=== PATIENT | female | born 1960 | race Hispanic/Latino ===

== ENCOUNTER 2022-11-04 15:34 | Observation (INO) | payer SELFPAY ==
[2022-11-04] MEDS ORDERED: NA CHLORIDE 0.9% 1,000 ML ONE (17:09)
[2022-11-04] MEDS ORDERED: NA CHLORIDE 0.9% 100 ML ONE (17:09)
[2022-11-04] MEDS ORDERED: SMZ./TMP. 800/160 MG TABLET ONE (17:09)
[2022-11-04] MEDS ORDERED: CEFAZOLIN SODIUM 1 GM/VIAL ONE (17:09)
--- NOTE | 2022-11-04 18:08 | RAD REPORT ---
EXAM DESCRIPTION: Yashira Single View11/04/2022 5:22 pm CLINICAL HISTORY: COUGH COMPARISON: No comparisonsNo comparisons TECHNIQUE: Portable AP view of the chest. FINDINGS: The lungs show no focal consolidation. Diffuse interstitial prominence. No pneumothorax o r effusion. The cardiomediastinal contours are unremarkable. IMPRESSION: Diffuse interstitial prominence with no focal consolidation. Fine may relate to mild joão tral congestion or edema.
[2022-11-04 18:10] LABS: Absolute Lymphocytes (CBC) 2.3 K/uL (0.7-4.9); Hematocrit 37.6 % (36.0-45.0); Lymphocytes % 39.7 % (15.3-44.8); MCV 96.9 fL (80-100); MPV 11.9 fL (7.6-11.3); RBC Red Blood Cell Count 3.89 M/uL (3.86-4.86)
--- NOTE | 2022-11-04 18:13 | RAD REPORT ---
EXAM DESCRIPTION: RAD - Tib Fib Right - 11/04/2022 5:22 pm CLINICAL HISTORY: Pain;Swelling COMPARISON: No comparisons TECHNIQUE: Right tibia and fibula, 2 views. FINDINGS: No fracture is identified. There is no dislocation or periosteal reaction noted. No acute or suspicious bony finding. Soft tissue defect along the lateral distal lower leg. Pronounced subcutaneous soft tissue swelling t hroughout the lower leg. IMPRESSION: Soft tissue swelling with wound along the lateral distal lower leg. No acute osseous ab normality
[2022-11-04 18:16] LABS: Protime INR 1.25
[2022-11-04 18:36] LABS: Albumin 2.6 g/dL (3.4-5.0); Bilirubin Direct 0.2 mg/dL (0-0.2); Bilirubin Indirect, Calculated 0.3 mg/dL (0.2-0.8); Bilirubin Total 0.5 mg/dL (0.2-1.0); Magnesium 1.9 mg/dL (1.6-2.4); Potassium 3.7 mEq/L (3.5-5.1); Protein, Total 7.1 g/dL (6.4-8.2); Troponin High Sensitivity 12.6 pg/mL (<58.9)
--- NOTE | 2022-11-04 18:38 | RAD REPORT ---
EXAM DESCRIPTION: US - Extrem Venous W Compress Miller - 11/04/2022 5:55 pm CLINICAL HISTORY: Pain, swelling COMPARISON: None. TECHNIQUE: Real-time sonographic evaluation of the bilateral lower extremity deep venous systems was performed. FINDINGS: Normal compressibility, flow augmentation, phasic flow and spontaneous flow is identified in both the left and right lower extremity deep venous systems. No intraluminal filling defects seen. IMPRESSION: No evidence of DVT in either lower extremity.
--- NOTE | 2022-11-04 18:52 | EDPHYS ---
Physician Documentation [facility] Name: Jasmin Leger Age: 62 yrs Sex: Female : 1960 Arrival Date: 11/04/2022 Time: 15:34 Bed 15 Private MD: ED Physician Jeferson Tirado HPI: 11/04 16:39 This 62 yrs old Female presents to ER via Ambulatory with complaints of Leg jermaine Swelling, Wound Check. 16:39 Patient presents to ED for recheck of: cellulitis. The affected area is on the lateral jermaine aspect of right calf and right ankle. Historical: - Allergies: 15:58 No Known Allergies; aa5 - PMHx: 15:58 Hypertensive disorder; aa5 - PSHx: 15:58 None; aa5 - Immunization history:: Adult Immunizations unknown. - Social history:: Smoking status: Patient denies any tobacco usage or history of. Patient uses. ROS: 16:39 Constitutional: Negative for fever, chills, and weight loss, Eyes: Negative for injury, jermaine pain, redness, and discharge, ENT: Negative for injury, pain, and discharge, Neck: Negative for injury, pain, and swelling, Cardiovascular: Negative for chest pain, palpitations, and edema, Respiratory: Negative for shortness of breath, cough, wheezing, and pleuritic chest pain, Abdomen/GI: Negative for abdominal pain, nausea, vomiting, diarrhea, and constipation, Back: Negative for injury and pain, : Negative for injury, bleeding, discharge, and swelling, Skin: Negative for injury, rash, and discoloration, Neuro: Negative for headache, weakness, numbness, tingling, and seizure, Psych: Negative for depression, anxiety, suicide ideation, homicidal ideation, and hallucinations, Allergy/Immunology: Negative for hives, rash, and allergies, Endocrine: Negative for neck swelling, polydipsia, polyuria, polyphagia, and marked weight changes, Hematologic/Lymphatic: Negative for swollen nodes, abnormal bleeding, and unusual bruising. 16:39 MS/extremity: Positive for pain, swelling, tenderness, of the right leg. Exam: 16:39 Constitutional: This is a well developed, well nourished patient who is awake, alert, jermaine and in no acute distress. Head/Face: Normocephalic, atraumatic. Eyes: Pupils equal round and reactive to light, extra-ocular motions intact. Lids and lashes normal. Conjunctiva and sclera are non-icteric and not injected. Cornea within normal limits. Periorbital areas with no swelling, redness, or edema. ENT: Nares patent. No nasal discharge, no septal abnormalities noted. Tympanic membranes are normal and external auditory canals are clear. Oropharynx with no redness, swelling, or masses, exudates, or evidence of obstruction, uvula midline. Mucous membranes moist. Neck: Trachea midline, no thyromegaly or masses palpated, and no cervical lymphadenopathy. Supple, full range of motion without nuchal rigidity, or vertebral point tenderness. No Meningismus. Chest/axilla: Normal chest wall appearance and motion. Nontender with no deformity. No lesions are appreciated. Cardiovascular: Regular rate and rhythm with a normal S1 and S2. No gallops, murmurs, or rubs. Normal PMI, no JVD. No pulse deficits. Respiratory: Lungs have equal breath sounds bilaterally, clear to auscultation and percussion. No rales, rhonchi or wheezes noted. No increased work of breathing, no retractions or nasal flaring. Abdomen/GI: Soft, non-tender, with normal bowel sounds. No distension or tympany. No guarding or rebound. No evidence of tenderness throughout. Back: No spinal tenderness. No costovertebral tenderness. Full range of motion. Female : Normal external genitalia. Skin: Warm, dry with normal turgor. Normal color with no rashes, no lesions, and no evidence of cellulitis. Neuro: Awake and alert, GCS 15, oriented to person, place, time, and situation. Cranial nerves II-XII grossly intact. Motor strength 5/5 in all extremities. Sensory grossly intact. Cerebellar exam normal. Normal gait. Psych: Awake, alert, with orientation to person, place and time. Behavior, mood, and affect are within normal limits. 16:39 Musculoskeletal/extremity: Extremities: noted in the lateral aspect of right calf and right ankle: decreased ROM, pain, swelling, tenderness, ROM: full active range of motion, full passive range of motion, Circulation is intact in all extremities. Sensation intact. Compartment Syndrome exam of affected extremity: no pain, with passive ROM, Weight bearing: able to fully bear weight, without difficulty, DVT Exam: negative Homans' sign noted on exam, no appreciated bluish discoloration, pain, swelling, tenderness, erythema, increased warmth. 16:47 ECG was reviewed by the Attending Physician. [facility] Vital Signs: 15:52 BP 152 / 65; Pulse 60; Resp 16 S; Temp 98.4(O); Pulse Ox 100% on R/A; Weight 104.33 kg aa5 (R); Height 5 ft. 0 in. (R); 16:33 BP 125 / 55; Pulse 54; Resp 16; Pulse Ox 98% ; bp 18:03 Pulse 59; Resp 16; Pulse Ox 98% ; bp 19:00 BP 156 / 79; Pulse 58; Resp 16; Pulse Ox 99% on R/A; jb4 20:00 BP 164 / 75; Pulse 61; Resp 16; Pulse Ox 98% on R/A; jb4 15:52 Body Mass Index 44.92 (104.33 kg, 152.4 cm) aa5 MDM: 15:37 Patient medically screened. [facility] 16:48 Differential diagnosis: cellulitis, contusion, tendonitis. Data reviewed: vital signs, [facility] nurses notes, lab test result(s), EKG, radiologic studies, doppler, plain films. Consideration of Admission/Observation Escalation of care including admission/observation considered. I considered the following discharge prescriptions or medication management in the emergency department Medications were administered in the Emergency Department. See MAR. Test considered but Not performed: MRI: NO MRI LE. Care significantly affected by the following chronic conditions: Hypertension, Obesity. Counseling: I had a detailed discussion with the patient and/or guardian regarding: the historical points, exam findings, and any diagnostic results supporting the discharge/admit diagnosis, lab results, radiology results. 11/04 16:35 Order name: Basic Metabolic Panel; Complete Time: 18:43 [facility] 11/04 16:35 Order name: CBC with Diff; Complete Time: 18:43 [facility] 11/04 16:35 Order name: LFT's; Complete Time: 18:43 [facility] 11/04 16:35 Order name: Magnesium; Complete Time: 18:43 [facility] 11/04 16:35 Order name: NT PRO-BNP; Complete Time: 18:43 [facility] 11/04 16:35 Order name: PT-INR; Complete Time: 18:43 [facility] 11/04 16:35 Order name: Troponin HS; Complete Time: 18:43 [facility] 11/04 16:35 Order name: Wound Culture [facility] 11/04 16:35 Order name: XRAY Chest (1 view); Complete Time: 18:43 [facility] 11/04 16:35 Order name: Tib Fib Right XRAY; Complete Time: 18:43 [facility] 11/04 16:35 Order name: US Extremity Venous W Compression Miller; Complete Time: 18:43 [facility] 11/04 16:35 Order name: EKG; Complete Time: 16:35 [facility] 11/04 16:35 Order name: Cardiac monitoring; Complete Time: 16:35 [facility] 11/04 16:35 Order name: EKG - Nurse/Tech; Complete Time: 16:39 [facility] 11/04 16:35 Order name: IV Saline Lock; Complete Time: 18:01 [facility] 11/04 16:35 Order name: Labs collected and sent; Complete Time: 18:01 [facility] 11/04 16:35 Order name: O2 Per Protocol; Complete Time: 16:35 [facility] 11/04 16:35 Order name: O2 Sat Monitoring; Complete Time: 16:35 [facility] 11/04 18:50 Order name: Wound dressing: WET TO DRY; Complete Time: 18:52 [facility] EC:47 Rate is 64 beats/min. Rhythm is regular. QRS Gibbs is Normal. [place] interval is normal. QRS jermaine interval is normal. QT interval is normal. No Q waves. T waves are Normal. No ST changes noted. Clinical impression: NSR w/ Non-specific ST/T Changes and No evidence of ischemia. Interpreted by me. Reviewed by me. Administered Medications: 18:01 Drug: NS 0.9% IV 500 ml Route: IV; Rate: bolus; Site: right forearm; bp 18:01 Drug: NS 0.9% IV 1000 ml Route: IV; Rate: 125 ml/hr; Site: right forearm; bp 18:01 Drug: ceFAZolin IVPB 1 grams Route: IVPB; Site: right forearm; bp 18:01 Drug: Trimethoprim-Sulfamethoxazole PO (160 mg-800 mg (DS) 1 tablet Route: PO; bp 20:06 Drug: vancoMYCIN IVPB 2 grams Route: IVPB; Rate: calculated rate; Site: right forearm; jb4 Disposition Summary: 11/04/22 18:52 Hospitalization Ordered Hospitalization Status: Inpatient Admission jermaine Provider: Ash, Mohammad jermaine Condition: Stable jermaine Problem: new jermaine Symptoms: have improved jermaine Bed/Room Type: Standard [facility] Location: Telemetry/MedSurg (Inpatient)(11/04/22 18:52) [facility] Room Assignment: 229(11/04/22 19:40) Diagnosis - Cellulitis and acute lymphangitis of other sites - RIGHT LOWER EXTREMITY jermaine - Lymphedema, not elsewhere classified jermaine Discharge Instructions: - Discharge Summary Sheet jermaine - Cellulitis, Adult jermaine - How to Change Your Wound Dressing jermaine - Cellulitis, Adult, [id number] jermaine - Lymphedema jermaine - How to Change Your Wound Dressing, Kwwz-[id number] jermaine - Wound Packing jermaine - Lymphangitis, Adult jermaine Forms: - Medication Reconciliation Form jermaine - SBAR form [facility] Prescriptions: - Cephalexin 500 mg Oral Capsule - take 1 capsule by ORAL route every 6 hours for 10 days; 40 capsule; Refills: 0, jermaine Product Selection Permitted - Silvadene 1 % Topical Cream - Apply to affected area 1 application by TOPICAL route every 12 hours; 50 gram; jermaine Refills: 0, Product Selection Permitted - Bactrim DS 800-160 mg Oral Tablet - take 1 tablet by ORAL route every 12 hours for 10 days; 20 tablet; Refills: 0, jermaine Product Selection Permitted Signatures: Dispatcher [employer] EDMS Bess Barros RN RN Jeferson Evangelista MD MD cha Calderon, Audri, RN RN aa5 Gaston Valdivia RN RN jb4 Aj Abernathy RN RN bp Corrections: (The following items were deleted from the chart) 18:52 18:52 Telemetry/MedSurg (observation) [facility] 18:52 18:52 [facility] 19:40 18:52 jermaine mw
--- NOTE | 2022-11-04 18:52 | ER ---
Nurse's Notes [facility] Name: Jasmin Leger Age: 62 yrs Sex: Female : 1960 Arrival Date: 11/04/2022 Time: 15:34 Bed 15 Private MD: Diagnosis: Cellulitis and acute lymphangitis of other sites-RIGHT LOWER EXTREMITY;Lymphedema, not elsewhere classified Presentation: 11/04 15:52 Chief complaint: Patient states: wound to right lower leg with right lower leg swelling aa5 x 1 week ago. 15:52 Coronavirus screen: At this time, the client does not indicate any symptoms associated aa5 with coronavirus-19. Ebola Screen: Patient denies travel to an Ebola-affected area in the 21 days before illness onset. Initial Sepsis Screen: Does the patient meet any 2 criteria? No. Patient's initial sepsis screen is negative. Does the patient have a suspected source of infection? Yes:. Risk Assessment: Do you want to hurt yourself or someone else? Patient reports no desire to harm self or others. Onset of symptoms was October 2022. 15:52 Acuity: DENILSON 3 aa5 15:52 Method Of Arrival: Ambulatory aa5 Triage Assessment: 16:00 General: Appears in no apparent distress. Behavior is appropriate for age. Pain: bp Complains of pain in right leg. EENT: No deficits noted. Neuro: No deficits noted. Cardiovascular: No deficits noted. Respiratory: No deficits noted. GI: No signs and/or symptoms were reported involving the gastrointestinal system. : No signs and/or symptoms were reported regarding the genitourinary system. Derm: Wound noted lateral aspect of right calf. Musculoskeletal: Swelling present in right leg. Historical: - Allergies: 15:58 No Known Allergies; aa5 - PMHx: 15:58 Hypertensive disorder; aa5 - PSHx: 15:58 None; aa5 - Immunization history:: Adult Immunizations unknown. - Social history:: Smoking status: Patient denies any tobacco usage or history of. Patient uses. Screenin:00 [facility] ED Fall Risk Assessment (Adult) History of falling in the last 3 months, bp including since admission No falls in past 3 months (0 pts). Abuse screen: Denies threats or abuse. Denies injuries from another. Nutritional screening: No deficits noted. Tuberculosis screening: No symptoms or risk factors identified. Assessment: 16:00 General: SEE TRIAGE NOTE. bp 16:33 Reassessment: Patient appears in no apparent distress at this time. Patient is alert, bp oriented x 3, equal unlabored respirations, skin warm/dry/pink. 18:00 Reassessment: Patient appears in no apparent distress at this time. Patient is alert, bp oriented x 3, equal unlabored respirations, skin warm/dry/pink. 19:00 Reassessment: Patient appears in no apparent distress at this time. Patient and/or jb4 family updated on plan of care and expected duration. Pain level reassessed. Patient is alert, oriented x 3, equal unlabored respirations, skin warm/dry/pink. 20:00 Reassessment: Patient appears in no apparent distress at this time. Patient and/or jb4 family updated on plan of care and expected duration. Pain level reassessed. Patient is alert, oriented x 3, equal unlabored respirations, skin warm/dry/pink. 20:53 Reassessment: Patient appears in no apparent distress at this time. Patient and/or jb4 family updated on plan of care and expected duration. Pain level reassessed. Patient is alert, oriented x 3, equal unlabored respirations, skin warm/dry/pink. Vital Signs: 15:52 BP 152 / 65; Pulse 60; Resp 16 S; Temp 98.4(O); Pulse Ox 100% on R/A; Weight 104.33 kg aa5 (R); Height 5 ft. 0 in. (R); 16:33 BP 125 / 55; Pulse 54; Resp 16; Pulse Ox 98% ; bp 18:03 Pulse 59; Resp 16; Pulse Ox 98% ; bp 19:00 BP 156 / 79; Pulse 58; Resp 16; Pulse Ox 99% on R/A; jb4 20:00 BP 164 / 75; Pulse 61; Resp 16; Pulse Ox 98% on R/A; jb4 15:52 Body Mass Index 44.92 (104.33 kg, 152.4 cm) aa5 ED Course: 15:36 Patient arrived in ED. am2 15:37 Jeferson Tirado MD is Attending Physician. jermaine 15:52 Arm band placed on Patient placed in an exam room, on a stretcher. aa5 15:53 Aj Abernathy, RN is Primary Nurse. bp 16:00 Triage completed. aa5 16:00 Patient has correct armband on for positive identification. Bed in low position. Call bp light in reach. Side rails up X2. 17:23 XRAY Chest (1 view) In Process Unspecified. EDMS 17:23 Tib Fib Right XRAY In Process Unspecified. EDMS 17:30 Inserted saline lock: 22 gauge in right forearm, using aseptic technique. bp 17:57 US Extremity Venous W Compression Miller In Process Unspecified. EDMS 18:50 Sonia Ash MD is Hospitalizing Provider. jermaine 21:27 No provider procedures requiring assistance completed. Patient admitted, IV remains in jb4 place. Administered Medications: 18:01 Drug: NS 0.9% IV 500 ml Route: IV; Rate: bolus; Site: right forearm; bp 18:01 Drug: NS 0.9% IV 1000 ml Route: IV; Rate: 125 ml/hr; Site: right forearm; bp 18:01 Drug: ceFAZolin IVPB 1 grams Route: IVPB; Site: right forearm; bp 18:01 Drug: Trimethoprim-Sulfamethoxazole PO (160 mg-800 mg (DS) 1 tablet Route: PO; bp 20:06 Drug: vancoMYCIN IVPB 2 grams Route: IVPB; Rate: calculated rate; Site: right forearm; jb4 Medication: 16:00 VIS not applicable for this client. bp Outcome: 18:52 Decision to Hospitalize by Provider. jermaine 21:27 Admitted to Med/surg accompanied by tech, via wheelchair, room 229, with chart. jb4 21:27 Condition: stable 21:27 Discharge instructions given to patient, family, Instructed on the need for admit, Demonstrated understanding of instructions. 21:28 Patient left the ED. jb4 Signatures: Dispatcher [employer] EDAZ Jeferson Tirado MD MD cha Calderon, Audri, RN RN aa5 Gaston Valdivia, RN RN jb4 Adriana Carrillo 2 Aj Abernathy, RN RN bp
[2022-11-04] MEDS ORDERED: VANCOMYCIN 1 GM/VIAL ONE (19:22)
[2022-11-04] MEDS ORDERED: NA CHLORIDE 0.9% 500 ML ONE (19:22)
--- NOTE | 2022-11-04 19:39 | P.HP ---
Certification for Inpatient Patient admitted to: Observation With expected LOS: <2 Midnights Patient will require the following post-hospital care: None Practitioner: I am a practitioner with admitting privileges, knowledge of patient current condition, hospital course, and medical plan of care. Services: Services provided to patient in accordance with Admission requirements found in Title 42 Section 412.3 of the Code of Federal Regulations Patient History Date of Service: 11/04/22 Primary Care Provider: tony castaneda Reason for admission: RLE cellulitis History of Present Illness: 62-year-old female with history of hypertension presents to the emergency department with chief complaint of right lower extremity swelling/redness and wound which started approximately 1 week ago. She reports the wound started after cleaning the area to the lateral aspect of her right lower extremity has gotten worse since then. She has not been on any antibiotics outside hospital, right leg significant more swollen than left leg. She is evaluated in the emergency department x-ray tib-fib right lower extremity showed soft tissue swelling with wound present no bony injuries or gas present, ultrasound right lower extremity negative for DVT. Labs were remarkable for mildly elevated BNP 522 level to count normal chest x-ray showed diffuse interstitial prominence with no focal consolidation. May relate to mild central congestion or edema. In the ER she was given vancomycin, Ancef. ED provider wishes to admit under observation for right lower extremity cellulitis. - Past Medical/Surgical History -: Hypertension -: CHF? -: None Psychosocial/ Personal History: Patient lives at home with her family - Social History Smoking Status: Never smoker Alcohol use: No Place of Residence: Home Review of Systems 10-point ROS is otherwise unremarkable Integumentary: Other (Erythema, swelling right lower extremity), As per HPI Physical Examination - Physical Exam General: Alert, In no apparent distress, Oriented x3, Other (Divehi-speaking only) HEENT: Atraumatic, PERRLA, Mucous membr. moist/pink, EOMI, Sclerae nonicteric Neck: Supple Respiratory: Clear to auscultation bilaterally, Normal air movement Cardiovascular: Regular rate/rhythm, Normal S1 S2, Edema (Edema worse right lower extremity than left) Capillary refill: <2 Seconds Gastrointestinal: Normal bowel sounds, No tenderness Musculoskeletal: No tenderness Integumentary: Tenderness/swelling, Erythema (Present right lower extremity), Warmth Neurological: Normal speech, Normal strength at 5/5 x4 extr, Normal tone, Normal affect - Studies Laboratory Data (last 24 hrs) 11/04/22 17:55: PT 13.8 H, INR 1.25 11/04/22 17:55: WBC 5.80, Hgb 12.1, Hct 37.6, Plt Count 129 L 11/04/22 17:55: Sodium 141, Potassium 3.7, BUN 12, Creatinine 0.74, Glucose 100, Magnesium 1.9, Total Bilirubin 0.5, AST 46 H, ALT 43, Alkaline Phosphatase 150 H Assessment and Plan - Plan Assessment: Right lower extremity cellulitis/wound Hypertension Plan: Right lower extremity cellulitis/wound Negative for DVT right lower extremity, wound present to the lateral aspect. Wound healing consulted continue IV vancomycin. Will obtain wound culture. Hypertension Continue home losartan confirmed. DVT PPX: Lovenox Code status: Full Discharge Plan: Home Plan to discharge in: 24 Hours - Advance Directives Does patient have a Living Will: No Does patient have a Durable POA for Healthcare: No - Code Status/Comfort Care Code Status Assessed: Yes (Full code) Critical Care: No Time Spent Managing Pts Care (In Minutes): 55
[2022-11-04] MEDS ORDERED: ONDANSETRON 4 MG/2 ML VIAL IV PRN (21:36)
[2022-11-04] MEDS ORDERED: ACETAMINOPHEN 500 MG TAB PO PRN (21:36)
[2022-11-04 23:00] VITALS: O2SAT 96; BMI 42.5
[2022-11-05 03:41] LABS: Absolute Lymphocytes (CBC) 1.9 K/uL (0.7-4.9); Hematocrit 33.8 % (36.0-45.0); Lymphocytes % 35.3 % (15.3-44.8); MCV 95.7 fL (80-100); MPV 11.8 fL (7.6-11.3); RBC Red Blood Cell Count 3.54 M/uL (3.86-4.86)
[2022-11-05 03:51] LABS: Potassium 3.9 mEq/L (3.5-5.1)
[2022-11-05] MEDS ORDERED: POTASSIUM CL SA 10 MEQ TAB PO ONE (05:00)
--- NOTE | 2022-11-05 07:00 | P.PN ---
Date of Service: 11/05/22 Subjective: feeling better today pain in leg is improving swelling/redness improving per family afebrile ROS: 10 point ROS as noted above, otherwise negative Physical Exam: GEN: Alert, oriented, NAD HEENT: Normal conjunctiva, sclera anicteric CV: Regular rate and rhythm, no edema, b/l lower extremity edema, worse on right Pulm: Nonlabored respirations on room air ABD: Soft, nontender, nondistended MSK: No joint tenderness Integumentary: Tenderness, Warmth, Erythema of lower right extremity Neuro: Normal speech, normal affect vitals reviewed Problem List: Right lower extremity cellulitis/wound Hypertension Right lower extremity cellulitis/wound Negative for DVT right lower extremity, wound present to the lateral aspect. Wound healing consulted wound culture: pending continue IV vancomycin ID consulted Hypertension Continue home losartan confirmed VTE: Lovenox Code: Full Dispo: Home 1 day
[2022-11-05 08:24] VITALS: BP 180/74; TEMP 98
[2022-11-05] MEDS ORDERED: VANCOMYCIN 1 GM in NA CHLORIDE 0.9% 250 ML IVPB SCH (09:00)
[2022-11-05] MEDS ORDERED: ENOXAPARIN 40 MG/0.4 ML SQ SCH (09:00)
--- NOTE | 2022-11-05 10:26 | P.CNS ---
Date of Consult: 11/05/22 Reason for Consult: RLE Cellulitis Primary Care Provider: [facility] tonya Chief Complaint: RLE cellulitis History of Present Illness: Patient is a 62 yo female with a history of hypertension who presented to the ED with complaints of right lower leg swelling and redness which began approximately 1 week ago. She presented to the ED due to worsening redness and swelling of the area and has not been treated with any antibiotics. XR obtained in the ED which was negative for bony injuries or gas. ID consulted for cellulitis of left lower extremity. Allergies No Known Allergies Allergy (Unverified 11/04/22 21:07) Home medications list reviewed: Yes Home Medications: Cholecalciferol (Vitamin D3) [Vitamin D3] 25 mcg PO DAILY 11/04/22 No122/Iron/Folic Acid [ Multi Tablet] 1 tab PO DAILY 11/04/22 Valsartan [Diovan] 80 mg PO DAILY 11/04/22 Smz./Tmp. [Bactrim Ds 800 MG/160 MG] 1 tab PO BID 20 Days #10 tab 11/05/22 - Past Medical/Surgical History Diabetic: No -: Hypertension -: Fatty Liver Disease -: PVD -: None Psychosocial/ Personal History: Patient lives at home with her family - Social History Smoking Status: Never smoker Alcohol use: No CD- Drugs: No Caffeine use: Yes Place of Residence: Home Review of Systems 10-point ROS is otherwise unremarkable Integumentary: As per HPI Physical Examination Temp Pulse Resp BP Pulse Ox 98.0 F 61 16 180/74 H 96 11/05/22 08:00 11/05/22 08:00 11/05/22 08:00 11/05/22 08:00 11/05/22 08:00 General: Alert, In no apparent distress, Oriented x3 HEENT: Atraumatic, Normocephalic Neck: Supple, JVD not distended Respiratory: Clear to auscultation bilaterally, Normal air movement Cardiovascular: Edema Gastrointestinal: Normal bowel sounds, Soft and benign, Non-distended Musculoskeletal: No clubbing Integumentary: Erythema (RLE cellulitis) Neurological: Normal speech, Normal tone, Normal affect Laboratory Data - Reviewed Microbiology Data - Reviewed Imagings Data: - Reviewed Conclusions/Impression: Problem List Hypertension Cellulitis, Right Lower Extremity Moderate PCM RLE Cellulitis - XR Right Lower leg 11/04: "Soft tissue swelling with wound along the lateral distal lower leg. No acute osseous abnormality" - Wound culture right ankle 11/04: 4+ staph coagulase positive - no leukocytosis - afebrile - Currently on vancomycin (started 11/05) Recommendations - Consider d/c home on Bactrim PO. - Apply xeroform to wound and cover with gauze wrap - Supportive care and nutritional support as needed Case discussed with Marlo Arzola
--- NOTE | 2022-11-05 11:53 | P.DS ---
Admission Date: 11/04/22 Discharge Date: 11/05/22 Primary Care Provider: tony castaneda Disposition: ROUTINE DISCHARGE Discharge Condition: GOOD Reason for Admission: RLE cellulitis Consultations: Infectious Disease - Dr. Petty Brief History of Present Illness: 62yo F, PMH: hypertension Patient presents to the emergency department with chief complaint of right lower extremity swelling/redness and wound which started approximately 1 week ago. She reports the wound started after cleaning the area to the lateral aspect of her right lower extremity has gotten worse since then. She has not been on any antibiotics outside hospital, right leg significant more swollen than left leg. She is evaluated in the emergency department x-ray tib-fib right lower extremity showed soft tissue swelling with wound present no bony injuries or gas present, ultrasound right lower extremity negative for DVT. Labs were remarkable for mildly elevated BNP 522 level to count normal chest x-ray showed diffuse interstitial prominence with no focal consolidation. May relate to mild central congestion or edema. In the ER she was given vancomycin, Ancef. Hospital Course: Problem List: Right lower extremity cellulitis/wound Hypertension Patient presented with right lower extremity cellulitis around a small superficial wound. She received IV antibiotics and had significant improvement overnight. Her swelling and pain improved significantly and she remained afebrile and without leukocytosis. ID was consulted. Patient reported feeling better and ready to go home if possible. A wound culture was obtained in the ED, which will be unreliable due to the nature of superficial cultures / swabs, and no purulent drainage. Antibiotic recommendations were discussed with ID. Patient is discharged home to complete a course of Bactrim twice daily for 10 days Follow up: PCP in 3-5 days, wound check, follow up on cultures Medications: continue chronic home medications new: Bactrim twice daily for 10 days Wound care as instructed. Elevate legs as often as possible to assist in swelling Physical Exam: GEN: Alert, oriented, NAD HEENT: Normal conjunctiva, sclera anicteric CV: Regular rate and rhythm, trace b/l lower extremity edema, slightly greater on right Pulm: Nonlabored respirations on room air, clear bilaterally Integumentary: small, ~1.5cm superficial ulcer/wound with mild tenderness and ~2cm of surrounding induration, no abscess or tracking on exam Neuro: Normal speech, normal affect Vital Signs/Physical Exam: Temp Pulse Resp BP Pulse Ox 98.0 F 61 16 180/74 H 96 11/05/22 08:00 11/05/22 08:00 11/05/22 08:00 11/05/22 08:00 11/05/22 08:00 Laboratory Data at Discharge: WBC 5.50 thou/uL (4.3-10.9) 11/05/22 02:40 Hgb 11.3 g/dL (12.0-15.0) L 11/05/22 02:40 Hct 33.8 % (36.0-45.0) L 11/05/22 02:40 Plt Count 113 thou/uL (152-406) L 11/05/22 02:40 PT 13.8 SECONDS (9.5-12.5) H 11/04/22 17:55 INR 1.25 11/04/22 17:55 Sodium 144 mEq/L (136-145) 11/05/22 02:40 Potassium 3.9 mEq/L (3.5-5.1) 11/05/22 02:40 BUN 13 mg/dL (7-18) 11/05/22 02:40 Creatinine 0.77 mg/dL (0.55-1.02) 11/05/22 02:40 Glucose 121 mg/dL (74-106) H 11/05/22 02:40 Magnesium 1.9 mg/dL (1.6-2.4) 11/04/22 17:55 Total Bilirubin 0.5 mg/dL (0.2-1.0) 11/04/22 17:55 AST 46 U/L (15-37) H 11/04/22 17:55 ALT 43 U/L (13-56) 11/04/22 17:55 Alkaline Phosphatase 150 U/L (45-117) H 11/04/22 17:55 Home Medications: Cholecalciferol (Vitamin D3) [Vitamin D3] 25 mcg PO DAILY 11/04/22 No122/Iron/Folic Acid [ Multi Tablet] 1 tab PO DAILY 11/04/22 Valsartan [Diovan] 80 mg PO DAILY 11/04/22 Smz./Tmp. [Bactrim Ds 800 MG/160 MG] 1 tab PO BID 20 Days #10 tab 11/05/22 New Medications: Smz./Tmp. [Bactrim Ds 800 MG/160 MG] 1 tab PO BID 20 Days #10 tab Physician Discharge Instructions: Patient presented with right lower extremity cellulitis around a small superficial wound. She received IV antibiotics and had significant improvement overnight. Her swelling and pain improved significantly and she remained afebrile and without leukocytosis. ID was consulted. Patient reported feeling better and ready to go home if possible. A wound culture was obtained in the ED, which will be unreliable due to the nature of superficial cultures / swabs, and no purulent drainage. Antibiotic recommendations were discussed with ID. Patient is discharged home to complete a course of Bactrim twice daily for 10 days Follow up: PCP in 3-5 days, wound check, follow up on cultures Medications: continue chronic home medications new: Bactrim twice daily for 10 days Wound care as instructed. Elevate legs as often as possible to assist in swelling Time spent managing pt's care (in minutes): 45
[2022-11-05] MEDS ORDERED: VANCOMYCIN 2 GM in NA CHLORIDE 0.9% 500 ML IVPB SCH (20:00)
[2022-11-05] MEDS ORDERED: SMZ./TMP. 800/160 MG TABLET PO SCH (21:00)
--- NOTE | 2022-11-06 19:15 | EKG ---
Test Date: 2022-11-04 Test Time: 16:43:40 Home Hospice Rn: FLORECITA MEASUREMENT RESULTS: Intervals: Rate: 64 GA: 148 QRSD: 84 QT: 396 QTc: 408 [place]: P: 1 GA: 148 QRS: 34 T: 50 INTERPRETIVE STATEMENTS: Sinus rhythm with occasional premature ventricular complexes Otherwise normal ECG No previous ECG available for comparison Electronically Signed On 11-06-22 19:11:02 CDT by Jerry Jensen
== END 2022-11-05 14:14 | disposition home or self-care (01) ==
LOC: ER 15:34 → ERHOLD 19:23 → 2ND 21:08
PROVIDERS: ADMIT Hospitalist; ATTEND Hospitalist
DX: L03.115 Cellulitis of right lower limb (principal); I10 Essential (primary) hypertension; I89.0 Lymphedema, not elsewhere classified
CPT/HCPCS: 36415; 71045; 80048; 80076; 83735; 83880; 84484; 85025; 85610; 87070; 87077; 87186; 87205; 93005; 93970; 96374; 96375; 99285; G0378; J0690; J1650; J7030; J7040

== ENCOUNTER 2023-11-16 16:50 | Inpatient (IN) | payer SELFPAY ==
--- OUTSIDE RECORDS SUMMARY | 2023-11-16 16:53 | XMS REPORT | Continuity of Care Document ---
Author Name Unknown Address [address] [place] [address] [employer] Address [address] [place] [address] [address] [place] [address] Care Team Providers Care Electrical Engineering Drafting Officer Name Role Phone L_Gold Attending Clinician Unavailable L_Penarmani Admitting Clinician Unavailable Payers Payer Name Policy Type Policy Number Effective Date Expirati on Date Source Problems Condition Name Condition Details Condition Category Status Onset Date Resolution Date Last Treatment Date Treating Clinician Comments Source Platelet count outside reference range Platelet Count outside Reference Range Problem Active 01-23 00:00: 00 [facility] Liver enzymes level above reference range Liver Enzymes Level above Reference Range Problem Active 01-23 00:00: 00 [facility] Hypertensi ve disorder Hypertensi ve Disorder Problem Active 11-04 00:00: 00 [facility] Social History Smoking Status Start Date Stop Date Source Never Smoker [facility] Medications Ordered Medication Name Filled Medication Name Start Date Stop Date Current Medication? Ordering Clinician Indication Dosage Frequency Signature (SIG) Comments Components Source Vitamin D3 Vitamin D3 No Vitamin D3 [facility] sulfamethox azole 800 mg-trimetho prim 160 mg tablet Take 1 tablet every 12 hours by oral route for 7 days. sulfamethox azole 800 mg-trimetho prim 160 mg tablet Take 1 tablet every 12 hours by oral route for 7 days. No 1 Q12H sulfametho xazole 800 mg-trimeth oprim 160 mg tablet Take 1 tablet every 12 hours by oral route for 7 days. [facility] valsartan 80 mg tablet TAKE 1 TABLET BY MOUTH ONCE DAILY valsartan 80 mg tablet TAKE 1 TABLET BY MOUTH ONCE DAILY No valsartan 80 mg tablet TAKE 1 TABLET BY MOUTH ONCE DAILY [facility] Vitamin D3 Vitamin D3 No Vitamin D3 [facility] cephalexin 500 mg capsule Take 1 capsule every 6 hours by oral route for 7 days. cephalexin 500 mg capsule Take 1 capsule every 6 hours by oral route for 7 days. No 1capsul e(s) Q6H cephalexin 500 mg capsule Take 1 capsule every 6 hours by oral route for 7 days. [facility] mupirocin 2 % topical ointment APPLY A SMALL AMOUNT TO THE AFFECTED AREA BY TOPICAL ROUTE 3 TIMES PER DAY mupirocin 2 % topical ointment APPLY A SMALL AMOUNT TO THE AFFECTED AREA BY TOPICAL ROUTE 3 TIMES PER DAY No mupirocin 2 % topical ointment APPLY A SMALL AMOUNT TO THE AFFECTED AREA BY TOPICAL ROUTE 3 TIMES PER DAY [facility] sulfamethox azole 800 mg-trimetho prim 160 mg tablet TAKE 1 TABLET BY MOUTH TWICE DAILY sulfamethox azole 800 mg-trimetho prim 160 mg tablet TAKE 1 TABLET BY MOUTH TWICE DAILY No sulfametho xazole 800 mg-trimeth oprim 160 mg tablet TAKE 1 TABLET BY MOUTH TWICE DAILY [facility] valsartan 80 mg tablet Take 1 tablet every day by oral route. valsartan 80 mg tablet Take 1 tablet every day by oral route. No 1 Q1D valsartan 80 mg tablet Take 1 tablet every day by oral route. [facility] Vitamin D3 Vitamin D3 No Vitamin D3 [facility] mupirocin 2 % topical ointment APPLY A SMALL AMOUNT TO THE AFFECTED AREA THREE TIMES DAILY mupirocin 2 % topical ointment APPLY A SMALL AMOUNT TO THE AFFECTED AREA THREE TIMES DAILY No mupirocin 2 % topical ointment APPLY A SMALL AMOUNT TO THE AFFECTED AREA THREE TIMES DAILY [facility] valsartan 80 mg tablet Take 1 tablet every day by oral route. valsartan 80 mg tablet Take 1 tablet every day by oral route. No 1 Q1D valsartan 80 mg tablet Take 1 tablet every day by oral route. [facility] Vitamin D3 Vitamin D3 No Vitamin D3 [facility] mupirocin 2 % topical ointment APPLY A SMALL AMOUNT TO THE AFFECTED AREA THREE TIMES DAILY mupirocin 2 % topical ointment APPLY A SMALL AMOUNT TO THE AFFECTED AREA THREE TIMES DAILY No mupirocin 2 % topical ointment APPLY A SMALL AMOUNT TO THE AFFECTED AREA THREE TIMES DAILY [facility] valsartan 80 mg tablet Take 1 tablet every day by oral route. valsartan 80 mg tablet Take 1 tablet every day by oral route. No 1 Q1D valsartan 80 mg tablet Take 1 tablet every day by oral route. [facility] Vitamin D3 Vitamin D3 No Vitamin D3 [facility] hydrochloro thiazide 12.5 mg tablet Take 1 tablet every day by oral route. hydrochloro thiazide 12.5 mg tablet Take 1 tablet every day by oral route. No 1 Q1D hydrochlor othiazide 12.5 mg tablet Take 1 tablet every day by oral route. [facility] mupirocin 2 % topical ointment APPLY A SMALL AMOUNT TO THE AFFECTED AREA THREE TIMES DAILY mupirocin 2 % topical ointment APPLY A SMALL AMOUNT TO THE AFFECTED AREA THREE TIMES DAILY No mupirocin 2 % topical ointment APPLY A SMALL AMOUNT TO THE AFFECTED AREA THREE TIMES DAILY [facility] valsartan 80 mg tablet Take 1 tablet every day by oral route. valsartan 80 mg tablet Take 1 tablet every day by oral route. No 1 Q1D valsartan 80 mg tablet Take 1 tablet every day by oral route. [facility] Vitamin D3 Vitamin D3 No Vitamin D3 [facility] valsartan 80 mg tablet Take 1 tablet every day by oral route. valsartan 80 mg tablet Take 1 tablet every day by oral route. No 1 Q1D valsartan 80 mg tablet Take 1 tablet every day by oral route. [facility] cephalexin 500 mg capsule Take 1 capsule every 6 hours by oral route for 7 days. cephalexin 500 mg capsule Take 1 capsule every 6 hours by oral route for 7 days. No 1capsul e(s) Q6H cephalexin 500 mg capsule Take 1 capsule every 6 hours by oral route for 7 days. [facility] hydrochloro thiazide 12.5 mg tablet TAKE 1 TABLET BY MOUTH ONCE DAILY hydrochloro thiazide 12.5 mg tablet TAKE 1 TABLET BY MOUTH ONCE DAILY No hydrochlor othiazide 12.5 mg tablet TAKE 1 TABLET BY MOUTH ONCE DAILY [facility] mupirocin 2 % topical ointment APPLY A SMALL AMOUNT TO THE AFFECTED AREA BY TOPICAL ROUTE 2-3 TIMES PER DAY mupirocin 2 % topical ointment APPLY A SMALL AMOUNT TO THE AFFECTED AREA BY TOPICAL ROUTE 2-3 TIMES PER DAY No mupirocin 2 % topical ointment APPLY A SMALL AMOUNT TO THE AFFECTED AREA BY TOPICAL ROUTE 2-3 TIMES PER DAY [facility] Vital Signs Vital Name Observation Time Observation Value Comments S ource BP Diastolic 2023-04-29 00:00:00 68 mm[Hg] [facility] BMI (Body Mass Index) 2023-04-29 00:00:00 42.2 kg/m2 [facility] BP Systolic 2023-04-29 00:00:00 152 mm[Hg] [facility] Height 2023-04-29 00:00:00 62 [in_i] [facility] Body Weight 2023-04-29 00:00:00 3688 [oz_av] [facility] BP Diastolic 2023-01-23 00:00:00 53 mm[Hg] [facility] BMI (Body Mass Index) 2023-01-23 00:00:00 41.8 kg/m2 [facility] Body Weight 2023-01-23 00:00:00 3654.4 [oz_av] [facility] BP Systolic 2023-01-23 00:00:00 133 mm[Hg] [facility] Height 2023-01-23 00:00:00 62 [in_i] [facility] Height 2023-01-17 00:00:00 62 [in_i] [facility] BP Diastolic 2023-01-17 00:00:00 54 mm[Hg] [facility] BMI (Body Mass Index) 2023-01-17 00:00:00 42.6 kg/m2 [facility] Body Weight 2023-01-17 00:00:00 3724.8 [oz_av] [facility] BP Systolic 2023-01-17 00:00:00 153 mm[Hg] [facility] BP Diastolic 2022-11-25 00:00:00 61 mm[Hg] [facility] Height 2022-11-25 00:00:00 62 [in_i] [facility] BMI (Body Mass Index) 2022-11-25 00:00:00 41.8 kg/m2 [facility] BP Systolic 2022-11-25 00:00:00 139 mm[Hg] [facility] Body Weight 2022-11-25 00:00:00 3660.8 [oz_av] [facility] BP Diastolic 2022-11-08 00:00:00 43 mm[Hg] [facility] Height 2022-11-08 00:00:00 62 [in_i] [facility] BMI (Body Mass Index) 2022-11-08 00:00:00 41.6 kg/m2 [facility] BP Systolic 2022-11-08 00:00:00 126 mm[Hg] [facility] Body Weight 2022-11-08 00:00:00 3641.6 [oz_av] [facility] Body Weight 2022-11-04 00:00:00 3776 [oz_av] [facility] BP Diastolic 2022-11-04 00:00:00 63 mm[Hg] [facility] Height 2022-11-04 00:00:00 62 [in_i] [facility] BMI (Body Mass Index) 2022-11-04 00:00:00 43.2 kg/m2 [facility] BP Systolic 2022-11-04 00:00:00 161 mm[Hg] [facility] Plan of Care Planned Activity Planned Date Details Comments Source Instructions [facility] Encounters Start Date/Time End Date/Time Encounter Type Admission Type Attending Clinicians Care Facility Care Department Encounter ID Source 2023-04-29 00:00:00 2023-04-29 00:00:00 Outpatient L_Pena [facility] [id number] [facility] 2023-04-29 00:00:00 2023-04-29 00:00:00 Amparo Malcolm APRN, MSN, [facility]: [address] [place] [address], [address] [place] [phone] , Ph. [facility] [id number] [facility] 2023-01-24 00:00:00 2023-01-24 00:00:00 Outpatient L_Pena [facility] [id number] [facility] 2023-01-23 00:00:00 2023-01-23 00:00:00 Outpatient L_Pena [facility] [id number] [facility] 2023-01-23 00:00:00 2023-01-23 00:00:00 Amparo Malcolm APRN, MSN, [facility]: [address] [place] [address], [address] [place] [phone] , Ph. [facility] [id number] [facility] 2023-01-17 00:00:00 2023-01-17 00:00:00 Outpatient L_Pena [facility] [id number] [facility] 2023-01-17 00:00:00 2023-01-17 00:00:00 Amparo Malcolm APRN, MSN, [facility]: [address] [place] [address], [address] [place] [phone] , Ph. [facility] [id number] [facility] 2022-11-25 00:00:00 2022-11-25 00:00:00 Outpatient L_Pena [facility] [id number] [facility] 2022-11-25 00:00:00 2022-11-25 00:00:00 Amparo Malcolm APRN, MSN, [employer]: [address] [place] [address], [address] [place] [phone] , Ph. [facility] [id number] [facility] 2022-11-08 00:00:00 2022-11-08 00:00:00 Outpatient L_Pena [facility] [id number] [facility] 2022-11-08 00:00:00 2022-11-08 00:00:00 Outpatient L_Pena [facility] [id number] [facility] 2022-11-08 00:00:00 2022-11-08 00:00:00 Amparo Malcolm APRN, MSN, [employer]: [address] [place] [address], [address] [facility], [place] [address] , Ph. [facility] [id number] [facility] 2022-11-04 00:00:00 2022-11-04 00:00:00 Outpatient L_Pena [facility] [id number] [facility] 2022-11-04 00:00:00 2022-11-04 00:00:00 Amparo Malcolm APRN, MSN, [employer]: [address] [place] [address], [address] [facility], [place] [address] , Ph. [facility] [id number] [facility]
[2023-11-16] MEDS ORDERED: ALBUTEROL 2.5 MG/3 ML NEB SOL ONE (18:02)
[2023-11-16] MEDS ORDERED: IPRATROPIUM BROM 0.5MG/2.5ML ONE (18:02)
[2023-11-16] MEDS ORDERED: METHYLPREDNISOLONE 125 MG INJ ONE (18:03)
[2023-11-16 18:27] LABS: Absolute Lymphocytes (CBC) 0.6 K/uL (0.7-4.9); Absolute Monocytes 0.6 K/uL (0.1-1.3); Absolute Neutrophil 3.5 K/uL (1.8-8.0); Basophils % 0.5 % (0-1.3); Eosinophils % 0.2 % (0-4.4); Hematocrit 36.7 % (36.0-45.0); Hemoglobin 12.3 g/dL (12.0-15.0); Lymphocytes % 13.3 % (15.3-44.8); MCH 31.5 pg (27.0-35.0); MCHC 33.6 g/dL (32.0-36.0); MCV 93.9 fL (80-100); MPV 11.8 fL (7.6-11.3); Monocytes % 13.2 % (3.3-12.3); Neutrophils % 72.8 % (41.7-73.7); Nucleated Red Blood Cells % 0.3 % (0-0); Platelets 64 thou/uL (152-406); Red Cell Distribution Width 13.6 % (12.1-15.2)
[2023-11-16 18:31] LABS: SARS-CoV-2 Antigen CONTROL BLUE LINE VIS/BG OK; SARS-CoV-2 Antigen Rapid Res Negative (Negative)
--- NOTE | 2023-11-16 18:36 | RAD REPORT ---
EXAM DESCRIPTION: RAD - Chest Single View - 11/16/2023 6:26 pm CLINICAL HISTORY: DYSPNEA Chest pain. COMPARISON: <Comparisons> FINDINGS: Portable technique limits examination quality. Moderate bilateral patchy lung opacities are present, slightly more severe on the right. This may rep resent pneumonia or pulmonary edema. The heart is mildly enlarged in size.
[2023-11-16 18:37] LABS: PT Prothrombin Time 14.8 SECONDS (9.4-12.5); PTT, Activated Partial Thromb 37.5 SECONDS (24.3-36.9); Protime INR 1.36
[2023-11-16 18:45] LABS: Albumin/Globulin Ratio 0.8 (1.1-1.8); Anion Gap 10.8 mEq/L (5.0-15.0); Bilirubin Total 1.6 mg/dL (0.2-1.0); Globulin 3.7 g/dL (2.3-3.5); Potassium 3.8 mEq/L (3.5-5.1); Protein, Total 6.7 g/dL (6.4-8.2)
[2023-11-16 19:01] LABS: Blood Morphology Comment NOT SEEN (NOT SEEN); Platelet Estimate DECR; White Blood Cell Scan OK (OK)
--- NOTE | 2023-11-16 19:03 | ER ---
Nurse's Notes [facility] Name: Jasmin Leger Age: 63 yrs Sex: Female : 1960 Arrival Date: 11/16/2023 Time: 16:50 Bed 2 Private MD: Diagnosis: Influenza due to identified novel influenza A virus;Pneumonia, unspecified organism Presentation: 11/15 17:01 Chief complaint: Patient's son or daughter states: SENT FROM FOR HYPOXIA. SOB AND bp COUGH SINCE FRIDAY. Coronavirus screen: At this time, the client does not indicate any symptoms associated with coronavirus-19. Ebola Screen: No symptoms or risks identified at this time. Initial Sepsis Screen: Does the patient meet any 2 criteria? No. Patient's initial sepsis screen is negative. Does the patient have a suspected source of infection? No. Patient's initial sepsis screen is negative. Risk Assessment: Do you want to hurt yourself or someone else? Patient reports no desire to harm self or others. Onset of symptoms is unknown. 17:01 Method Of Arrival: Ambulatory bp 17:01 Acuity: DENILSON 3 bp Historical: - Allergies: 17:02 No Known Allergies; bp - Home Meds: 17:02 valsartan 80 mg oral tablet 1 tab daily [Active]; bp - PMHx: 17:02 Hypertensive disorder; bp - Immunization history:: Adult Immunizations up to date. - Infectious Disease History:: Denies. - Social history:: Smoking status: Patient denies any tobacco usage or history of. Screenin:23 [facility] ED Fall Risk Assessment (Adult) History of falling in the last 3 months, ld1 including since admission No falls in past 3 months (0 pts) Confusion or Disorientation No (0 pts) Intoxicated or Sedated No (0 pts) Impaired Gait No (0 pts) Mobility Assist Device Used No (0 pt) Altered Elimination No (0 pt) Score/Fall Risk Level 0 - 2 = Low Risk Oriented to surroundings, Maintained a safe environment, Educated pt \T\ family on fall prevention, incl call for assistance when getting out of bed, Assessed \T\ reinforced patient's understanding of fall precautions, Provided non-skid footwear, Hourly rounding (assess needs \T\ fall precautionary measures) done, Used ambulatory aids as needed (educated on \T\ assisted with), Used gait belt as appropriate. Abuse screen: Denies threats or abuse. Denies injuries from another. Nutritional screening: No deficits noted. Tuberculosis screening: No symptoms or risk factors identified. Assessment: 18:21 General: Appears in no apparent distress. comfortable, Behavior is calm, cooperative, ld1 appropriate for age. Pain: Denies pain. Neuro: Level of Consciousness is awake, alert, obeys commands, Oriented to person, place, time, situation. Cardiovascular: Capillary refill < 3 seconds Patient's skin is warm and dry. Rhythm is sinus rhythm. Respiratory: Reports shortness of breath at rest on exertion Airway is patent Respiratory effort is even, labored, the patient has mild shortness of breath. GI: Abdomen is round non-distended, obese. : No signs and/or symptoms were reported regarding the genitourinary system. EENT: No signs and/or symptoms were reported regarding the EENT system. Derm: No signs and/or symptoms reported regarding the dermatologic system. Musculoskeletal: No signs and/or symptoms reported regarding the musculoskeletal system. Vital Signs: 17:01 BP 216 / 99; Pulse 81; Resp 18; Temp 98; Pulse Ox 88% ; bp 17:58 BP 169 / 90; Pulse 76; Resp 24; Pulse Ox 95% on 2 lpm NC; ko1 17:58 Pulse Ox 88% on R/A; ko1 18:21 BP 169 / 90; Pulse 83; Resp 24; Pulse Ox 100% on 8 lpm Non-rebreather mask; ld1 19:46 BP 184 / 84; Pulse 84; Pulse Ox 93% on R/A; Pain 0/10; tm6 21:06 BP 176 / 84; Pulse 78; Resp 21; Temp 97.8; Pulse Ox 96% on 2 lpm NC; tm6 19:46 Pain Scale: Adult tm6 ED Course: 16:51 Patient arrived in ED. ra3 17:00 Katie Andersen FNP-C is [facility]. kb 17:[address] MD is Attending Physician. kb 17:02 Triage completed. bp 17:23 Nakia Bianchi, RN is Primary Nurse. ld1 18:01 SARS-COV-2 Antigen Rapid Sent. hb 18:01 Flu Sent. hb 18:01 Troponin High Sensitivity Sent. hb 18:01 BNP Sent. hb 18:21 Blood Culture Adult (2) Sent. ld1 18:21 SARS-COV-2 Antigen Rapid Sent. ld1 18:21 Flu Sent. ld1 18:21 Lactate w/ 2H reflex if indic. Sent. ld1 18:21 Inserted saline lock: 20 gauge in left antecubital area, using aseptic technique. Blood ld1 collected. 18:23 Patient has correct armband on for positive identification. Placed in gown. Bed in low ld1 position. Call light in reach. Side rails up X2. quality assurance monitor final on. Pulse ox on. NIBP on. Door closed. Noise minimized. Warm blanket given. 18:28 Chest Single View XRAY In Process Unspecified. EDMS 19:03 Abraham Padron MD is Hospitalizing Provider. kb 19:45 EKG done, by ED staff, reviewed by Katie RODRIGUEZ. tm6 20:10 Primary Nurse role handed off by Nakia Bianchi, ISAAC as6 20:12 Pili Jerome, ISAAC is Primary Nurse. tm6 20:39 CT Chest For PE Angio In Process Unspecified. EDMS 21:47 No provider procedures requiring assistance completed. Patient admitted, IV remains in tm6 place. 21:48 Provided Education on: need for admit. tm6 21:48 Arm band placed on right wrist. tm6 Administered Medications: 18:21 Drug: Albuterol Inhalation 2.5 mg Inhalation once Route: Inhalation; ld1 18:21 Drug: Ipratropium Inhalation Aerosol 0.5 mg Inhalation once Route: Inhalation; ld1 18:21 Drug: MethylPrednisoLONE IVP 125 mg IVP once Route: IVP; Site: left antecubital; ld1 19:42 Drug: Rocephin IV 1 grams IV at calculated rate once; Given slow IV push per pharmacy tm6 instructions Route: IV; Rate: calculated rate; Site: left antecubital; 19:42 Drug: Zithromax IVPB 500 mg IVPB once over 1 hrs; mix in 250 mL NS Route: IVPB; Infused tm6 Over: 1 hrs; Site: left antecubital; Medication: 21:48 VIS not applicable for this client. tm6 Outcome: 19:03 Decision to Hospitalize by Provider. kb 21:48 Admitted to Med/surg accompanied by nurse, via wheelchair, room 214, with oxygen, with tm6 chart, 21:48 Admitted to Med/surg Report called to Jie GRAY 21:48 Condition: stable 21:48 Instructed on the need for admit, 21:50 Patient left the ED. tm6 Signatures: Dispatcher [employer] EDMS Katie Andersen, SUPERVISOR PLATE PASTING-Leigh SUPERVISOR PLATE PASTING-Soraida Wilcox, RN RN Aj Abernathy RN RN bp Nakia Bianchi RN RN ld1 Jase Galo RN ISAAC as6 Verónica Dickson RN RN ko1 Pili Jerome RN RN tm6 Capri Diana ra3 Corrections: (The following items were deleted from the chart) 18:23 18:23 No provider procedures requiring assistance completed. ld1 ld1 18:23 18:23 Inserted ld1 ld1
--- NOTE | 2023-11-16 19:03 | EDPHYS ---
Physician Documentation [facility] Name: Jasmin Leger Age: 63 yrs Sex: Female : 1960 Arrival Date: 11/16/2023 Time: 16:50 Bed 2 Private MD: ED Physician Rosemary Lane HPI: 11/15 17:06 This 63 yrs old Female presents to ER via Ambulatory with complaints of sent kb by next level:breathing diff. 17:06 pt is a 63 year old female with a history of hypertension who presents for cough, kb shortness of breath, subjective fever and weakness for 3 days. Dyspnea worse on exertion. No sick contacts. Historical: - Allergies: 17:02 No Known Allergies; bp - Home Meds: 17:02 valsartan 80 mg oral tablet 1 tab daily [Active]; bp - PMHx: 17:02 Hypertensive disorder; bp - Immunization history:: Adult Immunizations up to date. - Infectious Disease History:: Denies. - Social history:: Smoking status: Patient denies any tobacco usage or history of. ROS: 17:05 Constitutional: As per HPI kb Exam: 17:05 Constitutional: This is a well developed, well nourished patient who is awake, alert, kb and in no acute distress. Head/Face: Normocephalic, atraumatic. ENT: Moist Mucous membranes Cardiovascular: Regular rate Abdomen/GI: Soft, non-tender. No distention Skin: Warm, dry with normal turgor. Normal color. MS/ Extremity: Pulses equal, no cyanosis. Neurovascular intact. Full, normal range of motion. Neuro: Awake and alert, GCS 15, oriented to person, place, time, and situation. Moves all extremities. Normal gait. 17:05 Respiratory: the patient does not display signs of respiratory distress, Respirations: normal, Breath sounds: wheezing: expiratory that is moderate, is heard in the left posterior lower lobe, 17:40 ECG was reviewed by the Attending Physician. kb 20:47 ECG was reviewed by the Attending Physician. kb Vital Signs: 17:01 BP 216 / 99; Pulse 81; Resp 18; Temp 98; Pulse Ox 88% ; bp 17:58 BP 169 / 90; Pulse 76; Resp 24; Pulse Ox 95% on 2 lpm NC; ko1 17:58 Pulse Ox 88% on R/A; ko1 18:21 BP 169 / 90; Pulse 83; Resp 24; Pulse Ox 100% on 8 lpm Non-rebreather mask; ld1 19:46 BP 184 / 84; Pulse 84; Pulse Ox 93% on R/A; Pain 0/10; tm6 21:06 BP 176 / 84; Pulse 78; Resp 21; Temp 97.8; Pulse Ox 96% on 2 lpm NC; tm6 19:46 Pain Scale: Adult tm6 MDM: 17:00 Patient medically screened. kb 17:06 Data reviewed: vital signs, nurses notes. kb 19:02 Differential diagnosis: flu, covid, pneumonia, pulmonary edema. Consideration of kb Admission/Observation Patient was admitted/placed on observation. Escalation of care including admission/observation considered. Management of patient was discussed with the following: Hospitalist: Dr Padron accepts pt for admission. Historians other than the Patient: Daughter/Son: daughter. Counseling: I had a detailed discussion with the patient and/or guardian regarding the historical points, exam findings, and any diagnostic results supporting the discharge/admit diagnosis, lab results, radiology results, the need for further work-up and treatment in the hospital. 11/15 17:05 Order name: Blood Culture Adult (2) kb 11/15 17:05 Order name: CBC with Diff; Complete Time: 19:02 kb 11/15 17:05 Order name: CMP; Complete Time: 18:47 kb 11/15 17:05 Order name: Lactate w/ 2H reflex if indic.; Complete Time: 19:22 kb 11/15 17:05 Order name: Protime (+inr); Complete Time: 18:47 kb 11/15 17:05 Order name: Ptt, Activated; Complete Time: 18:47 kb 11/15 17:05 Order name: Flu; Complete Time: 18:31 kb 11/15 17:05 Order name: SARS-COV-2 Antigen Rapid; Complete Time: 18:47 kb 11/15 17:40 Order name: Troponin High Sensitivity; Complete Time: 19:17 kb 11/15 17:40 Order name: BNP; Complete Time: 19:17 kb 11/15 18:32 Order name: CBC Smear Scan; Complete Time: 19:02 EDMS 11/15 20:23 Order name: Urinalysis w/ reflexes EDMS 11/15 20:23 Order name: CBC with Automated Diff [facility] 11/15 20:23 Order name: CBC with Automated Diff [facility] 11/15 20:23 Order name: Comprehensive Metabolic Panel [facility] 11/15 20:23 Order name: Comprehensive Metabolic Panel [facility] 11/15 20:23 Order name: Troponin High Sensitivity [facility] 11/15 20:23 Order name: Troponin High Sensitivity [facility] 11/15 20:23 Order name: Troponin High Sensitivity [facility] 11/15 20:23 Order name: Troponin High Sensitivity [facility] 11/15 17:05 Order name: Chest Single View XRAY; Complete Time: 18:47 kb 11/15 19:33 Order name: CT Chest For PE Angio; Complete Time: 20:55 kb 11/15 17:05 Order name: EKG; Complete Time: 17:05 kb 11/15 19:18 Order name: EKG; Complete Time: 19:18 kb 11/15 20:23 Order name: CONS Physician Consult [facility] 11/15 17:05 Order name: Accucheck; Complete Time: 18:21 kb 11/15 17:05 Order name: Cardiac monitoring; Complete Time: 17:58 kb 11/15 17:05 Order name: EKG - Nurse/Tech; Complete Time: 17:58 kb 11/15 17:05 Order name: IV Saline Lock - Large Bore; Complete Time: 18:21 kb 11/15 17:05 Order name: Labs collected and sent; Complete Time: 17:12 kb 11/15 17:05 Order name: O2 Per Protocol; Complete Time: 17:12 kb 11/15 17:05 Order name: O2 Sat Monitoring; Complete Time: 17:14 kb 11/15 17:05 Order name: Vital Signs; Complete Time: 17:58 kb 11/15 19:18 Order name: EKG - Nurse/Tech; Complete Time: 19:45 kb EC:40 Rate is 78 beats/min. Rhythm is regular. QRS [place] is Normal. QRS interval is normal at kb 88 msec. QT interval is normal at 442 msec. 20:47 Rate is 82 beats/min. Rhythm is regular. QRS [place] is Normal. [place] interval is normal at kb 136 msec. QRS interval is normal at 90 msec. QT interval is normal at 460 msec. Administered Medications: 18:21 Drug: Albuterol Inhalation 2.5 mg Inhalation once Route: Inhalation; ld1 18:21 Drug: Ipratropium Inhalation Aerosol 0.5 mg Inhalation once Route: Inhalation; ld1 18:21 Drug: MethylPrednisoLONE IVP 125 mg IVP once Route: IVP; Site: left antecubital; ld1 19:42 Drug: Rocephin IV 1 grams IV at calculated rate once; Given slow IV push per pharmacy tm6 instructions Route: IV; Rate: calculated rate; Site: left antecubital; 19:42 Drug: Zithromax IVPB 500 mg IVPB once over 1 hrs; mix in 250 mL NS Route: IVPB; Infused tm6 Over: 1 hrs; Site: left antecubital; Disposition Summary: 11/16/23 19:03 Hospitalization Ordered Notes: Hospitalization Status: Inpatient Admission kb Provider: Abraham Padron Location: Telemetry/MedSurg (Inpatient) kb Condition: Stable kb Problem: new kb Symptoms: are unchanged kb Bed/Room Type: Standard Room Assignment: 214(11/16/23 20:36) sp Diagnosis - Influenza due to identified novel influenza A virus kb - Pneumonia, unspecified organism kb Forms: - Medication Reconciliation Form kb - SBAR form kb - Leadership Thank You Letter kb Critical care time excluding procedures: 20:48 Critical care time: Bedside Care: 10 minutes, Consultation: 10 minutes, Family kb Intervention: 10 minutes. Total time: 30 minutes Signatures: Dispatcher [employer] EDKatie Thompson, CRADLE SLIDE MAKER-C CRADLE SLIDE MAKER-Ckb Ya Herrera Brian RN Nakia Camacho RN RN [facility] Pili Jerome RN RN tm6 Corrections: (The following items were deleted from the chart) 17:41 17:40 Troponin High Sensitivity+C.LAB.BRZ ordered. EDMS EDMS 17:41 17:40 PROBNP+C.LAB.BRZ ordered. EDMS EDMS 20:36 19:03 kb sp
[2023-11-16] MEDS ORDERED: CEFTRIAXONE 1000 MG/VIAL ONE (19:09)
[2023-11-16] MEDS ORDERED: AZITHROMYCIN 500 MG INJ IVPB ONE (19:09)
[2023-11-16] MEDS ORDERED: NA CHLORIDE 0.9% 250 ML ONE (19:10)
[2023-11-16 19:16] LABS: Troponin High Sensitivity 735.2 pg/mL (<58.9)
[2023-11-16] MEDS ORDERED: ACETAMINOPHEN 325 MG TABLET ONE (20:52)
--- NOTE | 2023-11-16 20:53 | RAD REPORT ---
EXAM DESCRIPTION: CT - Chest For Pe Angio - 11/16/2023 8:37 pm CLINICAL HISTORY: Chest pain. Dyspnea;Cough COMPARISON: <Comparisons> TECHNIQUE: CT angiogram of the pulmonary arteries was performed with MIP. All CT scans are performed using dose optimization technique as appropriate and may include automated exposure control or mA/KV adjustment according to patient size. FINDINGS: No evidence of pulmonary thromboembolism. No acute aortic finding demonstrated. Mild to moderate bilateral pulmonary opacities may represent pulmonary edema or pneumonia. Trace pleural effusion on the right. The heart is upper limit of normal in size. No concerning bony finding. IMPRESSION: No evidence of pulmonary thromboembolism. Bilateral pulmonary opacities are present which may represent pneumonia/infection or pulmonary edema.
[2023-11-16] MEDS ORDERED: ONDANSETRON 4 MG/2 ML VIAL ONE (20:55)
--- NOTE | 2023-11-16 20:55 | P.HP ---
Certification for Inpatient Patient admitted to: Inpatient With expected LOS: >2 Midnights Practitioner: I am a practitioner with admitting privileges, knowledge of patient current condition, hospital course, and medical plan of care. Services: Services provided to patient in accordance with Admission requirements found in Title 42 Section 412.3 of the Code of Federal Regulations Patient History Date of Service: 11/16/23 Reason for admission: SOB/CP History of Present Illness: 63 yrs old Female with past medical history of hypertension, hyperlipidemia brought to ER with shortness of breath and chest discomfort associated with some headache and generalized weakness which has been going on for the last 3 days and has been progressively worsening . Has subjective fever. Also occasional cough with mucoid expectoration. Shortness of breath is worse with movements and even with minimal exertions. Denies any chest pain. Complains of headache. Patient was assessed in the ER and was admitted for further management and patient was noted to have severe hypertensive urgency She was also found to be positive for flu and possible CHF and NSTEMI. Allergies No Known Allergies Allergy (Unverified 11/04/22 21:07) Home medications list reviewed: Yes Home Medications: Cholecalciferol (Vitamin D3) [Vitamin D3] 25 mcg PO DAILY 11/04/22 No122/Iron/Folic Acid [ Multi Tablet] 1 tab PO DAILY 11/04/22 Valsartan [Diovan] 80 mg PO DAILY 11/04/22 Smz./Tmp. [Bactrim Ds 800 MG/160 MG] 1 tab PO BID 20 Days #10 tab 11/05/22 - Past Medical/Surgical History Diabetic: No Past Medical History: Reviewed- Non-Contributory -: Hypertension -: Fatty Liver Disease -: PVD Past Surgical History: Reviewed- Non-Contributory -: None Psychosocial/ Personal History: Patient lives at home with her family - Family History Family History: Reviewed- Non-Contributory - Social History Smoking Status: Never smoker Alcohol use: No CD- Drugs: No Caffeine use: Yes Review of Systems 10-point ROS is otherwise unremarkable Physical Examination - Vital Signs Temperature: 98.2 F Blood Pressure: 216/80 Pulse: 90 Respirations: 18 Pulse Ox (%): 96 - Physical Exam General: Alert, Oriented x3, Mild distress, Obese HEENT: Atraumatic, Normocephalic Neck: Supple, JVD not distended Respiratory: Clear to auscultation bilaterally, Crackles/rales Cardiovascular: Normal pulses, Regular rate/rhythm, Normal S1 S2 Capillary refill: <2 Seconds Gastrointestinal: Soft and benign, W/out hepatosplenomegaly, No ascites Musculoskeletal: No clubbing, No swelling Integumentary: No rashes, No significant lesion Neurological: Normal speech, Normal strength at 5/5 x4 extr, Cranial nerves 3-12 intact, Normal reflexes 2+, Normal affect Lymphatics: No axilla or inguinal lymphadenopathy - Studies Laboratory Data (last 24 hrs) 11/16/23 11/16/23 11/16/23 18:15 18:15 18:15 WBC 4.80 Hgb 12.3 Hct 36.7 Plt Count 64 L PT 14.8 H INR 1.36 APTT 37.5 H Sodium 130 L Potassium 3.8 BUN 12 Creatinine 0.62 Glucose 116 H Total Bilirubin 1.6 H AST 61 H ALT 42 Alkaline Phosphatase 108 Microbiology Data (last 24 hrs): 11/16/23 18:00 Nasopharnyx Influenza Type A Antigen Screen - Final 11/16/23 18:00 Nasopharnyx Influenza Type B Antigen Screen - Final Assessment and Plan - Problems (Diagnosis) (1) Influenza Current Visit: Yes Status: Acute Plan: Influenza A Will start on Tamiflu Supportive measures with Tylenol Monitor closely NSTEMI possibly type II due to hypertensive urgency Will trend cardiac enzymes Will monitor telemetry Started on aspirin and statin EKG did not show any acute changes suggestive of ischemia Patient denies any chest pain Will get an echocardiogram Cardiology consult Hypertensive urgency Antihypertensives titrated Hydralazine as needed Continue home medications and titrate as needed Hyponatremia Monitor electrolytes and replace accordingly Elevated BNP Started on mild diuresis Will get an echocardiogram Pneumonia Started on Rocephin and Zithromax Will get a repeat x-ray chest down the line GI/DVT prophylaxis Advanced directive full code Discharge Plan: Home Plan to discharge in: Greater than 2 days - Advance Directives Does patient have a Living Will: No Does patient have a Durable POA for Healthcare: No - Code Status/Comfort Care Code Status: Full Code Time Spent Managing Pts Care (In Minutes): 58
[2023-11-16] MEDS: OSELTAMIVIR 75 MG CAP PO SCH (21:00)
[2023-11-16] MEDS: ONDANSETRON 4 MG/2 ML VIAL IV PRN (21:41)
[2023-11-16] MEDS ORDERED: OSELTAMIVIR 75 MG CAP PO ONE (21:42)
[2023-11-16 22:25] VITALS: BMI 44.4
[2023-11-16] MEDS: HYDRALAZINE HCL 20 MG/ML VIAL IV PRN (22:39)
[2023-11-16] MEDS: FUROSEMIDE 20 MG/ 2ML VIAL IV SCH (23:06)
[2023-11-16] MEDS: AMLODIPINE 5 MG TAB PO SCH (23:07)
[2023-11-16] MEDS: carvediloL 6.25 MG TAB PO SCH (23:07)
[2023-11-17] MEDS ORDERED: ALBUTEROL 2.5 MG/3 ML NEB SOL NEB PRN
[2023-11-17 00:16] LABS: Specific Gravity 1.021 (1.005-1.030); Sqamous Epithelial <5 /HPF (None Seen); Urine Bacteria None Seen /HPF (<20); Urine Bilirubin NEGATIVE (Negative); Urine Blood 1+ (Negative); Urine Clarity Clear (Clear); Urine Color Colorless (Yellow); Urine Culture Reflex Order NOT NEEDED; Urine Glucose NEGATIVE (Negative); Urine Ketones NEGATIVE (Negative); Urine Microscopic Reflex YN ORDER UMIC; Urine Nitrite NEGATIVE (Negative); Urine Protein 1+ (Negative); Urine Urobilinogen Normal (Normal); Urine WBC <5 /HPF (<5); Urine pH 6.5 (5.0-7.0)
[2023-11-17 08:24] LABS: Absolute Lymphocytes (CBC) 0.7 K/uL (0.7-4.9); Absolute Monocytes 0.2 K/uL (0.1-1.3); Absolute Neutrophil 3.7 K/uL (1.8-8.0); Basophils % 0.2 % (0-1.3); Hematocrit 36.3 % (36.0-45.0); Hemoglobin 12.5 g/dL (12.0-15.0); Lymphocytes % 15.8 % (15.3-44.8); MCH 32.2 pg (27.0-35.0); MCHC 34.5 g/dL (32.0-36.0); MCV 93.2 fL (80-100); Monocytes % 5.2 % (3.3-12.3); Neutrophils % 78.8 % (41.7-73.7); Nucleated Red Blood Cells % 0.2 % (0-0); Platelets 70 thou/uL (152-406); RBC Red Blood Cell Count 3.89 M/uL (3.86-4.86); Red Cell Distribution Width 13.6 % (12.1-15.2)
[2023-11-17] MEDS: CEFTRIAXONE 1,000 MG in NA CHLORIDE 0.9% 50 ML IVPB SCH (08:25)
[2023-11-17] MEDS: ENOXAPARIN 40 MG/0.4 ML SQ SCH (08:26)
[2023-11-17] MEDS: AZITHROMYCIN IV 500 MG in NA CHLORIDE 0.9% 250 ML IVPB SCH (08:30)
[2023-11-17 08:47] LABS: Albumin 2.9 g/dL (3.4-5.0); Albumin/Globulin Ratio 0.8 (1.1-1.8); Anion Gap 8.3 mEq/L (5.0-15.0); Globulin 3.8 g/dL (2.3-3.5); Potassium 4.3 mEq/L (3.5-5.1); Protein, Total 6.7 g/dL (6.4-8.2)
[2023-11-17 08:48] LABS: Troponin High Sensitivity 520.5 pg/mL (<58.9)
[2023-11-17] MEDS: VALSARTAN 160 MG TAB PO SCH (09:00)
--- NOTE | 2023-11-17 10:33 | P.PN ---
Subjective Date of Service: 11/17/23 Chief Complaint: SOB/CP Patient is French-speaking. She states that she feels better compared to yesterday. She is maintained on oxygen by nasal cannula. She denies any chest pain. She reports shortness of breath with exertion and not at rest. No recorded fever since admission. Physical Examination - Vital Signs Temperature: 97.9 F Blood Pressure: 142/71 Pulse: 60 Respirations: 16 Pulse Ox (%): 98 - Studies Laboratory Data (last 24 hrs) 11/16/23 11/16/23 11/16/23 18:15 18:15 18:15 WBC 4.80 Hgb 12.3 Hct 36.7 Plt Count 64 L PT 14.8 H INR 1.36 APTT 37.5 H Sodium 130 L Potassium 3.8 BUN 12 Creatinine 0.62 Glucose 116 H Total Bilirubin 1.6 H AST 61 H ALT 42 Alkaline Phosphatase 108 Microbiology Data (last 24 hrs): 11/16/23 18:00 Nasopharnyx Influenza Type A Antigen Screen - Final 11/16/23 18:00 Nasopharnyx Influenza Type B Antigen Screen - Final Assessment And Plan - Plan Physical Examination General: Well-built, Not in acute distress. Morbidly obese HEENT: PERRLA, EOMI, anicteric sclera, conjunctiva not pale. Neck: Supple, no elevated JVD, no thyromegaly. Lungs: Clear to auscultation bilaterally. No rhonchi, no rales, no crackles. Heart: S1-S2 heard, rapid, no murmur no gallop no rub. Normal capillary refill. Abdomen: Soft, nontender, nondistended, no hepatosplenomegaly. Extremities: No pedal edema. No deformity. Neuro: No cranial nerve deficit, no focal motor deficit. Psychiatry: Awake, normal behavior, normal affect. Skin: Warm and dry, no rashes. Assessment and plan Influenza A Pneumonia Respiratory failure with hypoxia Continue Tamiflu Patient also started on Rocephin and Zithromax for possible secondary bacterial pneumonia Supportive measures with Tylenol, antitussives as needed. Respiratory status is improved, patient is currently tolerating room air. NSTEMI I suspect elevated troponin is secondary to demand ischemia versus viral myocarditis No chest pain. EKG did not show any acute changes to suggest ischemia Troponin trended down. Continue telemetry Continue aspirin and statin. Echocardiogram ordered Cardiology consult. Hypertensive urgency Resume home dose losartan and titrate. Hydralazine IV as needed for elevated BP. Hyponatremia Euvolemic hyponatremia, unclear etiology, could be secondary to dehydration. Monitor BMP. Elevated BNP IV Lasix Echocardiogram ordered Thrombocytopenia-chronic Coagulopathy PT and PTT are slightly elevated along with thrombocytopenia. Patient reported she has followed up with hematology regarding low platelet counts in the past. Monitor CBC to follow platelet count. Follow-up with hematology as outpatient. DVT prophylaxis Advanced directive full code
--- NOTE | 2023-11-17 12:15 | P.CNS ---
Date of Consult: 11/17/23 Chief Complaint: SOB/CP History of Present Illness: Patient with PMH of HTN presented with generalized weakness, fatigue and worsening SOB, also report chest pressure sensation that has been going on for few days, denies any other symptoms. Allergies No Known Allergies Allergy (Unverified 11/04/22 21:07) Home Medications: RX: Valsartan [Diovan] 80 mg PO DAILY 11/04/22 - Past Medical/Surgical History Diabetic: No -: Hypertension -: Fatty Liver Disease -: PVD -: None Psychosocial/ Personal History: Patient lives at home with her family - Social History Smoking Status: Never smoker Alcohol use: No CD- Drugs: No Caffeine use: Yes Place of Residence: Home Review of Systems 10-point ROS is otherwise unremarkable Physical Examination Temp Pulse Resp BP Pulse Ox 97.9 F 60 16 142/71 H 98 11/17/23 10:41 11/17/23 10:41 11/17/23 10:41 11/17/23 10:41 11/17/23 10:41 General: Alert, In no apparent distress HEENT: Atraumatic, PERRLA, Mucous membr. moist/pink, EOMI, Sclerae nonicteric Neck: Supple, 2+ carotid pulse no bruit, No LAD, Without JVD or thyroid abnormality Respiratory: Clear to auscultation bilaterally, Normal air movement Cardiovascular: Regular rate/rhythm, Normal S1 S2, Edema Gastrointestinal: Normal bowel sounds, No tenderness Musculoskeletal: No tenderness Integumentary: No rashes Neurological: Normal gait, Normal speech, Normal tone, Normal affect Lymphatics: No axilla or inguinal lymphadenopathy Laboratory Data (last 24 hrs) 11/16/23 11/16/23 11/16/23 18:15 18:15 18:15 WBC 4.80 Hgb 12.3 Hct 36.7 Plt Count 64 L PT 14.8 H INR 1.36 APTT 37.5 H Sodium 130 L Potassium 3.8 BUN 12 Creatinine 0.62 Glucose 116 H Total Bilirubin 1.6 H AST 61 H ALT 42 Alkaline Phosphatase 108 - Problems (1) NSTEMI (non-ST elevated myocardial infarction) Current Visit: Yes Status: Acute Plan: troponin is elevated and trending down, with chest pain, concern for angina. NPO after midnight coronary angiogram in am continue ASA 81 mg daily Lipitor 40 mg daily (2) HTN (hypertension) Current Visit: Yes Status: Acute Plan: continue coreg, valsartan and amlodipine. (3) HLD (hyperlipidemia) Current Visit: Yes Status: Acute Plan: please start patient on lipitor 40 mg daily (4) Lower extremity edema Current Visit: Yes Status: Acute Plan: agree with IV lasix, monitor input and output and electrolytes. get Echo.
--- NOTE | 2023-11-17 14:14 | EKG ---
Test Date: 2023-11-16 Test Time: 19:43:41 Warehouse Assembly Worker: [employer] MEASUREMENT RESULTS: Intervals: Rate: 82 MD: 136 QRSD: 90 QT: 394 QTc: 460 [place]: P: -3 MD: 136 QRS: 20 T: 32 INTERPRETIVE STATEMENTS: Normal sinus rhythm Normal ECG Compared to ECG 11/16/2023 17:34:54 Accelerated junctional rhythm no longer present Electronically Signed On 11-17-23 14:12:59 CDT by Jerry Jensen
--- NOTE | 2023-11-17 14:15 | EKG ---
Test Date: 2023-11-16 Test Time: 17:34:54 Molecular Technologist: Emerson CONTRERAS MEASUREMENT RESULTS: Intervals: Rate: 78 WI: QRSD: 88 QT: 388 QTc: 442 [place]: P: WI: QRS: 43 T: 7 INTERPRETIVE STATEMENTS: Normal sinus rhythm Abnormal ECG Compared to ECG 11/04/2022 16:43:40 Ventricular premature complex(es) no longer present Electronically Signed On 11-17-23 14:13:33 CDT by Jerry Jensen
--- NOTE | 2023-11-17 14:16 | ECHO ---
HEIGHT: 5 ft 3 in WEIGHT: 250 lb 9.6 oz DATE OF STUDY: 11/17/[address]: Efrain Padron DO 2-DIMENSIONAL: YES M.MODE: YES DOPPLER: YES COLOR FLOW: YES TDS: PORTABLE: YES DEFINITY: BUBBLE STUDY: DIAGNOSIS: NON ST ELEVATION MYOCARDIAL INFARCTION CARDIAC HISTORY: CATHERIZATION: SURGERY: PROSTHETIC VALVE: PACEMAKER: MEASUREMENTS (cm) DIASTOLIC (NORMALS) SYSTOLIC (NORMALS) IVSd 1.2 (0.6-1.2) LA Diam 3.6 (1.9-4.0) LVEF 60-65% LVIDd 4.3 (3.5-5.7) LVIDs 3.2 (2.0-3.5) %FS 26% LVPWd 1.3 (0.6-1.2) Ao Diam 3.1 (2.0-3.7) 2 DIMENSIONAL ASSESSMENT: RIGHT ATRIUM: NORMAL LEFT ATRIUM: NORMAL RIGHT VENTRICLE: NORMAL LEFT VENTRICLE: NORMAL TRICUSPID VALVE: TRACE TRICUSPID REGURGITATION MITRAL VALVE: MILD MITRAL REGURGITATION PULMONIC VALVE: NORMAL AORTIC VALVE: NORMAL PERICARDIAL EFFUSION: NONE AORTIC ROOT: NORMAL LEFT VENTRICULAR WALL MOTION: NORMAL DOPPLER/COLOR FLOW: NORMAL COMMENTS: 1. NORMAL LEFT VENTRICULAR SYSTOLIC FUNCTION, EJECTION FRACTION 60-65%, NORMAL WALL MOTION 2. MILD ELEVATED FILLING PRESSURE (RIGHT ATRIUM 15 mmHg) TECHNOLOGIST: KAMILLE NOBLE
[2023-11-17] MEDS: ACETAMINOPHEN 325 MG TABLET PO PRN (17:12)
[2023-11-18] MEDS: NA CHLORIDE 0.9% 0 ML ONE (07:56)
[2023-11-18 08:20] LABS: Anion Gap 3.2 mEq/L (5.0-15.0); Magnesium 2.2 mg/dL (1.6-2.4); Potassium 4.2 mEq/L (3.5-5.1)
[2023-11-18] MEDS: VALSARTAN 80 MG TAB PO SCH (08:52)
[2023-11-18] MEDS: NA CHLORIDE 0.9% 500 ML ONE (09:52)
[2023-11-18] MEDS ORDERED: FENTANYL CITR 100 MCG/2 ML ONE (10:45)
[2023-11-18] MEDS ORDERED: MIDAZOLAM HCL 2 MG/2 ML INJ ONE (10:45)
[2023-11-18] MEDS ORDERED: HEPARIN 5000 UNIT/ML 1 ML VIAL ONE (10:45)
[2023-11-18] MEDS ORDERED: HEPA 1000U/500MLS 2,000 UNIT/1,000 ML BAG IV ONE (10:45)
[2023-11-18] MEDS ORDERED: ATROPINE SULF 1 MG/10 ML SYR IV ONE (10:45)
[2023-11-18] MEDS ORDERED: TICAGRELOR 90 MG TABLET PO ONE (10:46)
[2023-11-18] MEDS ORDERED: ASPIRIN 325 MG TAB ONE (10:46)
[2023-11-18] MEDS ORDERED: FLUMAZENIL 0.1 MG/ML (5 mL VIAL) IV ONE (10:46)
[2023-11-18] MEDS ORDERED: HEPARIN 10,000 UNIT/10 ML VIAL IV ONE (10:46)
[2023-11-18] MEDS ORDERED: NALOXONE 0.4 MG/ML VIAL ONE (10:46)
[2023-11-18] MEDS ORDERED: CLOPIDOGREL 75 MG TABLET ONE (10:46)
[2023-11-18] MEDS ORDERED: LIDOCAINE 1% 20 ML MDV ONE (10:47)
--- NOTE | 2023-11-18 11:26 | P.PN ---
Date of Service: 11/18/23 Subjective: feeling better, breathing more comfortably cough persists but improved - less frequent. still with some dyspnea on exertion, but improved tolerating lasix heart cath today ROS: 10 point ROS as noted above, otherwise negative Physical Exam: GEN: Alert, oriented, NAD HEENT: Normal conjunctiva, sclera anicteric CV: Regular rate and rhythm, trace L pedal edema, 1+ R pedal edema Pulm: Nonlabored respirations on 2L NC, diminished at bases bilaterally ABD: Soft, nontender, nondistended Neuro: Normal speech, normal affect vitals reviewed Problem List: NSTEMI Acute hypoxic respiratory failure likely secondary to Influenza A / suspected pneumonia Elevated BNP Thrombocytopenia-chronic Coagulopathy Hypertension Hyperlipidemia NSTEMI Reports some chest pressure, fatigue, SOB, weakness for ~3 days. Troponins elevated but trending down. monitor on telemetry suspect elevated troponins secondary to demand ischemia vs viral myocarditis EKG did not show any acute changes Continue aspirin 81 mg, statin. Echo ordered to eval EF / stenosis Cardiology consulted NPO for left heart cath today to further eval (11/17) Acute hypoxic respiratory failure likely secondary to Influenza A / suspected pneumonia CTA chest (11/15): no PE. bilateral pulmonary opacities concerning for pneumonia/infection vs pulm edema CXR (11/15): Moderate bilateral patchy lung opacities. pneumonia vs pulm edema Tested positive for Influenza A. Continue Tamiflu for 5 days total (11/15-11/20) Continue empiric rocephin / zithromax (11/16-) to cover possible secondary bacterial pneumonia PRN Tylenol, antitussives, nebs Respiratory status is improved Elevated BNP IV lasix Echo ordered to eval EF / stenosis Cardiology consulted Thrombocytopenia-chronic Coagulopathy PT and PTT are slightly elevated along with thrombocytopenia. Patient reported she has followed up with hematology regarding low platelet counts in the past. Follow-up with hematology as outpatient. daily labs Hypertension continue home valsartan continue coreg 6.25 BID, amlodipine 5 mg daily PRN IV Hydralazine Hyperlipidemia continue statin Dispo: Home, ~1-2 days Pending heart cath / cardiac recs
--- NOTE | 2023-11-18 12:33 | P.PN ---
Subjective Date of Service: 11/18/23 Chief Complaint: SOB/CP Subjective: No new changes, No C/O voiced, Tolerating diet, Ambulating, Improving Review of Systems 10-point ROS is otherwise unremarkable Physical Examination - Vital Signs Temperature: 98.1 F Blood Pressure: 138/70 Pulse: 75 Respirations: 18 Pulse Ox (%): 99 - Physical Exam General: Alert, In no apparent distress HEENT: Atraumatic, PERRLA, EOMI Neck: Supple, JVD not distended Respiratory: Clear to auscultation bilaterally, Normal air movement Cardiovascular: Regular rate/rhythm, Normal S1 S2 Gastrointestinal: Normal bowel sounds, No tenderness Musculoskeletal: No tenderness Integumentary: No rashes Neurological: Normal speech, Normal tone, Normal affect Lymphatics: No axilla or inguinal lymphadenopathy - Studies Medications List Reviewed: Yes Assessment And Plan - Current Problems (Diagnosis) (1) NSTEMI (non-ST elevated myocardial infarction) Current Visit: Yes Status: Acute Plan: Coronary angiogram done today and shows mild LAD disease, troponin leak most likely type 2 MD from flu and PNA continue ASA 81 mg daily Lipitor 40 mg daily (2) HTN (hypertension) Current Visit: Yes Status: Acute Plan: continue coreg, valsartan and amlodipine. (3) HLD (hyperlipidemia) Current Visit: Yes Status: Acute Plan: please start patient on lipitor 40 mg daily (4) Lower extremity edema Current Visit: Yes Status: Acute Plan: Cath shows elevated LVEDP of 17 mmHg, switch to lasix 40 mg daily monitor input and output and electrolytes.
--- NOTE | 2023-11-18 12:48 | OP ---
Date of Procedure: 11/18/2023 Surgeon: Eulalio Marquez Procedures Performed: 1.Left heart catheterization. 2.Selective coronary angiogram. Indication For Procedure: [id number] myocardial infarction. Access: Right radial, closed by TR band. Sedation Time: 20 minutes with 1 of Versed and 50 of fentanyl. Complications: None. Estimated Blood Loss: Less than 50 cc. Description Of Procedure: After risks, benefits, and alternatives were explained to patient, patient agreed to proceed with the procedure and signed informed consent. The patient was brought back to [facility] laborer, prepped and draped in sterile fashion. Time-out was performed. Sedation was administer ed. Right radial ultrasound-guided micropuncture technique, access was obtained. A 6-Armenian sheath was inserted that was followed by [place] 4 catheter over the J-wire to the LV cavity. LVEDP was obtai nilson. Pullback did not show any gradient. Same catheter was used for selective coronary angiogram of the left and right coronary systems. [place]wall catheter was removed, sheath was removed. TR band appli ed and patient was moved back to recovery in stable condition. Findings: 1.Left main: Normal. 2.LAD: Proximal mild LI, mid diffuse 20% to 30% disease and mild LI. 3.Left circ: Mild LI. 4.RCA: Mild luminal irregularities. 5.LVEDP 17 mmHg. Assessment And Plan: 1.Mild mid left anterior descending disease. 2.Mildly elevated filling pressures. 3.The plan will be to continue medical management. EMERY/EVE Voice ID: [id number] Report ID: [id number]
[2023-11-18] MEDS ORDERED: ACETAMINOPHEN 325 MG TABLET PO PRN (13:14)
[2023-11-18] MEDS ORDERED: NITROGLYCERIN 0.4 MG/TAB SL PRN (13:19)
[2023-11-18] MEDS: NA CHLORIDE 0.9% 1,000 ML IV SCH (15:43)
[2023-11-18] MEDS: ATORVASTATIN 40 MG TAB PO SCH (20:32)
[2023-11-19 05:59] LABS: Anion Gap 4.9 mEq/L (5.0-15.0); Potassium 3.9 mEq/L (3.5-5.1)
[2023-11-19 08:53] VITALS: O2SAT 93
--- NOTE | 2023-11-19 09:02 | P.DS ---
Admission Date: 11/16/23 Discharge Date: 11/19/23 Disposition: ROUTINE DISCHARGE Discharge Condition: GOOD Reason for Admission: SOB/CP Consultations: Cardiology - Dr. Marquez Brief History of Present Illness: 63yo F, PMH: hypertension, hyperlipidemia Patient brought to ER with shortness of breath and chest discomfort associated with some headache and generalized weakness which has been going on for the last 3 days and has been progressively worsening . Has subjective fever. Also occasional cough with mucoid expectoration. Shortness of breath is worse with movements and even with minimal exertions. Denies any chest pain. Complains of headache. Patient was assessed in the ER and was admitted for further management and patient was noted to have severe hypertensive urgency She was also found to be positive for flu and possible CHF and NSTEMI. Hospital Course: Problem List: NSTEMI Mild CAD Acute hypoxic respiratory failure likely secondary to Influenza A Elevated BNP Thrombocytopenia-chronic Coagulopathy Hypertension Hyperlipidemia Physician discharge instructions: Patient presented with worsening chest discomfort, shortness of breath, headache for 3 days. Troponins were elevated but trended flat (peak 735). Secondary to troponin leak/ type 2 DC from flu. Echocardiogram noted 60-65% EF with normal wall motion and mildly elevated filling pressure. She was evaluated by Dr. Marquez, cardiology, who performed left heart cath noting mild LAD disease and elevated LV end diastolic pressure, no interventions required at this time. Recommended medical management with anti-hypertensives, lasix, and statin. Patient was feeling better, chest discomfort resolved, breathing more comfortably on room air, and was deemed stable for discharge. Chest xray/CTA chest noted moderate bilateral opacities, R > L concerning for possible pneumonia vs pulmonary edema. No evidence of pulmonary embolism. Patient was noted to be positive for influenza A. She was started on tamiflu and is to complete ~3 more days of tamiflu. (End date: 11/20) Patient received empiric rocephin / azithromycin while hospitalized as a precaution to cover possible secondary bacterial pneumonia and no need for further antibiotics on discharge. Patient's platelets were noted to be low this hospitalization along with sl ightly elevated PT/PTT. Patient reported she has followed up with hematology regarding low platelet counts in the past. Recommend to follow up with hematology. (Platelets: 64, PT: 14.8, APTT 37.5) Medications: Tamiflu 75mg twice daily - 4 more doses(end date: 11/20 morning) Statin 40 mg daily coreg 6.25 mg twice daily amlodipine 5 mg daily Furosemide 40mg daily continue valsartan as previously prescribed. Follow up: PCP 3-5 days Cardiology 1-2 weeks Please call to schedule / confirm appointments Heart Cath Findings: 1. Left main: Normal. 2. LAD: Proximal mild LI, mid diffuse 20% to 30% disease and mild LI. 3. Left circ: Mild LI. 4. RCA: Mild luminal irregularities. 5. LVEDP 17 mmHg. Physical Exam: GEN: Alert, oriented, NAD HEENT: Normal conjunctiva, sclera anicteric CV: Regular rate and rhythm, no edema Pulm: Nonlabored respirations on room air, clear bilaterally ABD: Soft, nontender, nondistended Neuro: Normal speech, normal affect Vital Signs/Physical Exam: Temp Pulse Resp BP Pulse Ox 97.4 F 59 18 161/85 H 90 L 11/19/23 04:00 11/19/23 04:00 11/19/23 04:00 11/19/23 04:00 11/19/23 04:00 Laboratory Data at Discharge: WBC 4.70 thou/uL (4.3-10.9) 11/17/23 07:27 Hgb 12.5 g/dL (12.0-15.0) 11/17/23 07:27 Hct 36.3 % (36.0-45.0) 11/17/23 07:27 Plt Count 70 thou/uL (152-406) L 11/17/23 07:27 PT 14.8 SECONDS (9.4-12.5) H 11/16/23 18:15 INR 1.36 11/16/23 18:15 APTT 37.5 SECONDS (24.3-36.9) H 11/16/23 18:15 Sodium Cancelled 11/19/23 14:00 Potassium Cancelled 11/19/23 Unknown BUN Cancelled 11/19/23 14:00 Creatinine Cancelled 11/19/23 14:00 Glucose Cancelled 11/19/23 14:00 Magnesium 2.0 mg/dL (1.6-2.4) 11/19/23 05:24 Total Bilirubin 1.0 mg/dL (0.2-1.0) 11/17/23 07:27 AST 56 U/L (15-37) H 11/17/23 07:27 ALT 41 U/L (13-56) 11/17/23 07:27 Alkaline Phosphatase 100 U/L (45-117) 11/17/23 07:27 Home Medications: Valsartan [Diovan] 80 mg PO DAILY 11/04/22 Amlodipine [Norvasc*] 5 mg PO DAILY 30 Days #30 tab 11/19/23 Atorvastatin Calcium [Lipitor] 40 mg PO BEDTIME 30 Days #30 tab 11/19/23 Furosemide [Lasix*] 40 mg PO DAILY 30 Days #30 tab 11/19/23 Oseltamivir [Tamiflu*] 75 mg PO BID 2 Days #4 cap 11/19/23 carvediloL [Coreg*] 6.25 mg PO BID 30 Days #60 tab 11/19/23 New Medications: carvediloL [Coreg*] 6.25 mg PO BID 30 Days #60 tab Furosemide [Lasix*] 40 mg PO DAILY 30 Days #30 tab Atorvastatin Calcium [Lipitor] 40 mg PO BEDTIME 30 Days #30 tab Amlodipine [Norvasc*] 5 mg PO DAILY 30 Days #30 tab Oseltamivir [Tamiflu*] 75 mg PO BID 2 Days #4 cap Physician Discharge Instructions: Physician discharge instructions: Patient presented with worsening chest discomfort, shortness of breath, headache for 3 days. Troponins were elevated but trended flat (peak 735). Secondary to troponin leak/ type 2 DC from flu. Echocardiogram noted 60-65% EF with normal wall motion and mildly elevated filling pressure. She was evaluated by Dr. Marquez, cardiology, who performed left heart cath noting mild LAD disease and elevated LV end diastolic pressure, no interventions required at this time. Recommended medical management with anti-hypertensives, lasix, and statin. Patient was feeling better, chest discomfort resolved, breathing more comfortably on room air, and was deemed stable for discharge. Chest xray/CTA chest noted moderate bilateral opacities, R > L concerning for possible pneumonia vs pulmonary edema. No evidence of pulmonary embolism. Patient was noted to be positive for influenza A. She was started on tamiflu and is to complete ~3 more days of tamiflu. (End date: 11/20) Patient received empiric rocephin / azithromycin while hospitalized as a precaution to cover possible secondary bacterial pneumonia and no need for further antibiotics on discharge. Patient's platelets were noted to be low this hospitalization along with slightly elevated PT/PTT. Patient reported she has followed up with hematology regarding low platelet counts in the past. Recommend to follow up with hematology. (Platelets: 64, PT: 14.8, APTT 37.5) Medications: Tamiflu 75mg twice daily - 4 more doses(end date: 11/20 morning) Statin 40 mg daily coreg 6.25 mg twice daily amlodipine 5 mg daily Furosemide 40mg daily continue valsartan as previously prescribed. Follow up: PCP 3-5 days Cardiology 1-2 weeks Please call to schedule / confirm appointments Heart Cath Findings: 1. Left main: Normal. 2. LAD: Proximal mild LI, mid diffuse 20% to 30% disease and mild LI. 3. Left circ: Mild LI. 4. RCA: Mild luminal irregularities. 5. LVEDP 17 mmHg. Followup: NONE,NONE [Primary Care Provider] - Time spent managing pt's care (in minutes): 45
[2023-11-19] MEDS: POTASSIUM 25 MEQ EFFERV TAB PO ONE (09:21)
[2023-11-19] MEDS: FUROSEMIDE 40 MG TABLET PO SCH (09:21)
[2023-11-19 11:12] VITALS: BP 184/82; TEMP 98.7
== END 2023-11-19 11:39 | disposition home or self-care (01) | DRG 280 ==
LOC: ER 16:50 → 2ND 20:19
PROVIDERS: ADMIT Family Medicine; ATTEND Hospitalist
PROC: 4A023N7 Measurement of Cardiac Sampling and Pressure, Left Heart, Percutaneous Approach (ICD-10-PCS; principal; 2023-11-18)
PROC: B2111ZZ Fluoroscopy of Multiple Coronary Arteries using Low Osmolar Contrast (ICD-10-PCS; 2023-11-18)
DX: I16.0 Hypertensive urgency (principal); J09.X1 Influenza due to identified novel influenza A virus with pneumonia; I21.A1 Myocardial infarction type 2; J96.01 Acute respiratory failure with hypoxia; J15.9 Unspecified bacterial pneumonia; Z68.41 Body mass index [BMI] 40.0-44.9, adult; E87.1 Hypo-osmolality and hyponatremia; D68.9 Coagulation defect, unspecified; E66.01 Morbid (severe) obesity due to excess calories; I10 Essential (primary) hypertension; E78.5 Hyperlipidemia, unspecified; E86.0 Dehydration; D69.6 Thrombocytopenia, unspecified; I25.10 Atherosclerotic heart disease of native coronary artery without angina pectoris; R60.9 Edema, unspecified; Z11.52 Encounter for screening for COVID-19; Z79.02 Long term (current) use of antithrombotics/antiplatelets; Z79.899 Other long term (current) drug therapy
CPT/HCPCS: 36415; 71045; 71275; 76937; 80048; 80053; 81001; 83605; 83735; 83880; 84484; 85025; 85610; 85730; 87040; 87804; 87811; 93005; 93306; 93458; 94760; 96374; 96375; 99152; 99153; 99285; C1893; J0360; J0461; J0696; J1644; J1650; J1940; J2001; J2250; J2310; J2405; J2919; J3010; J7030; J7040; J7050; J7613; J7644; Q9966; Q9967